=== PATIENT | female | born 1970 | race Caucasian/White ===

== ENCOUNTER 2018-06-07 21:59 | Emergency (ER) | payer MEDICAID, OTHER ==
[2018-06-07] MEDS ORDERED: Sodium Chloride 0.9% 1,000 ML IV STA (22:26)
--- NOTE | 2018-06-07 22:31 | ED PDOC ---
Arrival/HPI - General Chief Complaint: Abdominal Pain Time Seen by Provider: 06/07/18 22:25 Historian: Patient - History of Present Illness Narrative History of Present Illness (Text): 06/07/18 22:27 47yo female with no pmhx present with complaint of intermittent lower abdominal crampy pain since this morning. Notes that pain is localized inferior to her umbilicus. States her last BM was yesterday and normal. Denies nausea, vomiting , diarrhea, constipation, fever, chills, chest pain, SOB, urinary symptoms, melena, hematemesis, any other complaint. Past Medical History - Provider Review Nursing Documentation Reviewed: Yes - Infectious Disease Hx of Infectious Diseases: None - Reproductive Menopause: Yes - Cardiac Hx Cardiac Disorders: No - Psychiatric Hx Substance Use: No - Anesthesia Hx Anesthesia: No Family/Social History - Physician Review Nursing Documentation Reviewed: Yes Family/Social History: Unknown Family HX Smoking Status: Never Smoked Hx Alcohol Use: No Hx Substance Use: No Allergies/Home Meds Allergies/Adverse Reactions: Allergies No Known Allergies Allergy (Verified 06/07/18 22:14) Review of Systems - Physician Review All systems were reviewed & negative as marked: Yes - Review of Systems Constitutional: Normal Eyes: Normal ENT: Normal Respiratory: Normal Cardiovascular: Normal Gastrointestinal: Abdominal Pain. absent: Constipation, Diarrhea, Nausea, Vomiting, Hematochezia, Hematemesis Genitourinary Female: Normal Musculoskeletal: Normal Skin: Normal Neurological: Normal Endocrine: Normal Hemo/Lymphatic: Normal Psychiatric: Normal Physical Exam Vital Signs Reviewed: Yes Vital Signs Temp Pulse Resp BP Pulse Ox 06/07/18 22:41 98.4 F 72 16 129/76 100 Temperature: Afebrile Blood Pressure: Normal Pulse: Regular Respiratory Rate: Normal Appearance: Positive for: Well-Appearing, Non-Toxic, Comfortable Pain Distress: None Mental Status: Positive for: Alert and Oriented X 3 - Systems Exam Head: Present: Atraumatic, Normocephalic Pupils: Present: PERRL Extroacular Muscles: Present: EOMI Conjunctiva: Present: Normal Mouth: Present: Moist Mucous Membranes Neck: Present: Normal Range of Motion Respiratory/Chest: Present: Clear to Auscultation, Good Air Exchange. No: Respiratory Distress, Accessory Muscle Use Cardiovascular: Present: Regular Rate and Rhythm, Normal S1, S2. No: Murmurs Abdomen: Present: Tenderness (Inferior to the umbilicus), Other (Soft). No: Distention, Peritoneal Signs, Rebound, Guarding, McBurney's Point Tender, Rovsing's Sign Present Back: Present: Normal Inspection Upper Extremity: Present: Normal Inspection. No: Cyanosis, Edema Lower Extremity: Present: Normal Inspection. No: Edema Neurological: Present: GCS=15, CN II-XII Intact, Speech Normal Skin: Present: Warm, Dry, Normal Color. No: Rashes Psychiatric: Present: Alert, Oriented x 3, Normal Insight, Normal Concentration Medical Decision Making ED Course and Treatment: 06/07/18 22:33 PT presented for intermitted crampy abdominal pain since this morning. Labs, UA ordered IL NS, Pepcid 20mg ordered Abdominal/Pelvis CT ordered Will reassess 06/08/18 01:12 ABDOMEN and PELVIS: Intraperitoneal space: Unremarkable. No free air. No significant fluid collection. Bones/joints: Scoliosis. There is a well-corticated cystic lesion in the right proximal femur most likely benign measuring 2.5 cm. No acute fracture. No dislocation. Soft tissues: There is a fat-containing umbilical hernia. Vasculature: Unremarkable. No abdominal aortic aneurysm. Lymph nodes: Unremarkable. No enlarged lymph nodes. IMPRESSION: Right UPJ stone without hydronephrosis PT's lab was unremarkable. she was comfortable in ED CT result was CORA baker. He recommends KUB and Dc with pain medication. States pt should see him in the office on Sunday. Result was DW the pt. She was stringy advised to f/u with Dr. baker on Sunday. Advised to return to ED for worsening pain. Percocet, ibuprofen and cipro will given - Lab Interpretations Lab Results: 06/07/18 22:34 06/07/18 22:34 Lab Results 06/07/18 22:34: Sodium 141, Potassium 3.7, Chloride 104, Carbon Dioxide 27, Anion Gap 14, BUN 14, Creatinine 0.6 L, Est GFR ( Amer) > 60, Est GFR ( Non-Af Amer) > 60, Random Glucose 94, Calcium 9.4, Total Bilirubin 0.6, AST 23, ALT 36, Alkaline Phosphatase 98, Lactate Dehydrogenase 430, Total Creatine Kinase 79, Troponin I < 0.01, Total Protein 7.8, Albumin 4.4, Globulin 3.3, Albumin/Globulin Ratio 1.3, Amylase 66, Lipase 33 06/07/18 22:34: PT 12.9 H, INR 1.13, APTT 27.9 06/07/18 22:34: WBC 7.1, RBC 4.14, Hgb 12.4, Hct 36.0, MCV 87.0, MCH 30.0, MCHC 34.4, RDW 12.9, Plt Count 248, MPV 11.3 H, Gran % 59.2, Lymph % (Auto) 32.4, [place] % (Auto) 7.5 H, Eos % (Auto) 0.6 L, Baso % (Auto) 0.3, Gran # 4.21, Lymph # (Auto) 2.3, [place] # (Auto) 0.5, Eos # (Auto) 0.0, Baso # (Auto) 0.02 - RAD Interpretation Radiology Orders: 06/07/18 22:26 ABD & PELVIS IV CONTRAST ONLY [CT] Stat 06/08/18 00:42 ABDOMEN MULTIPLE VIEW (w/OBL) [RAD] Stat - Medication Orders Current Medication Orders: Discontinued Medications Famotidine (Pepcid) 20 mg IVP STAT STA Stop: 06/07/18 22:26 Last Admin: 06/07/18 22:40 Dose: 20 mg IVP Administration Document 06/07/18 22:40 IT (Rec: 06/07/18 22:40 IT [id number]) Charges for Administration # of IVP Administrations 1 Sodium Chloride (Sodium Chloride 0.9%) 1,000 mls @ 999 mls/hr IV .Q1H1M STA Stop: 06/07/18 23:26 Last Admin: 06/07/18 22:40 Dose: 999 mls/hr eMAR Start Stop Document 06/07/18 22:40 IT (Rec: 06/07/18 22:40 IT [id number]) Intravenous Solution Start Date 06/07/18 Start Time 22:40 Ketorolac Tromethamine (Toradol) 30 mg IVP STAT STA Stop: 06/08/18 00:36 Last Admin: 06/08/18 01:18 Dose: 30 mg MAR Pain Assessment Document 06/08/18 01:18 IT (Rec: 06/08/18 01:18 IT [id number]) Pain Reassessment Is this a pain reassessment? No Sleep Is patient sleeping during reassessment? No Presence of Pain Presence of Pain Yes Pain Scale Used Pain Scale Used Numeric IVP Administration Document 06/08/18 01:18 IT (Rec: 06/08/18 01:18 IT [id number]) Charges for Administration # of IVP Administrations 1 Tamsulosin HCl (Flomax) 0.4 mg PO STAT STA Stop: 06/08/18 01:21 Disposition/Present on Arrival - Present on Arrival Any Indicators Present on Arrival: No History of DVT/PE: No History of Uncontrolled Diabetes: No Urinary Catheter: No History of Decub. Ulcer: No History Surgical Site Infection Following: None - Disposition Have Diagnosis and Disposition been Completed?: Yes Diagnosis: Ureteral stone Disposition Time: :30 Patient Plan: Discharge Patient Problems: Current Active Problems Problem Status Onset Ureteral stone Acute Condition: STABLE Discharge Instructions (ExitCare): Renal Colic Additional Instructions: Follow up with Urologist, Dr. Baker on Sunday Drink plenty of fluid and take your medication Return to ED for any new or worsening symptoms Prescriptions: Ciprofloxacin HCl [Cipro] 500 mg PO BID #14 tablet Ibuprofen [Motrin Tab] 600 mg PO Q6 #20 tab oxyCODONE/Acetaminophen [Percocet 5/325 mg Tab] 1 ea PO Q6 #9 tab Tamsulosin [Flomax] 0.4 mg PO DAILY #3 cap Referrals: Lucia Baker MD [Staff Provider] - Follow up with primary Forms: [employer] (Burmese)
[2018-06-07 22:43] VITALS: RESP 16; O2SAT 100
[2018-06-07 22:43] LABS: BASO # 0.02 K/mm3 (0.0-2.0); BASO % 0.3 % (0.0-3.0); EOS % 0.6 % (1.5-5.0); GRAN # 4.21 (1.4-6.5); GRAN % 59.2 % (50.0-68.0); HEMOGLOBIN 12.4 g/dL (12.0-16.0); LYMPH # 2.3 (1.2-3.4); LYMPH % 32.4 % (22.0-35.0); MEAN CORPUSCULAR HGB CONC 34.4 g/dl (31.0-37.0); MEAN PLATELET VOLUME 11.3 fl (7.0-11.0); MONO # 0.5 (0.1-0.6); MONO % 7.5 % (1.0-6.0); RBC 4.14 10^6/uL (3.5-6.1); RED CELL DISTRIBUTION WIDTH 12.9 % (11.5-14.5); WHITE BLOOD COUNT 7.1 10^3/ul (4.5-11.0)
[2018-06-07 22:51] LABS: INR 1.13; PARTIAL THROMBOPLASTIN TIME 27.9 Seconds (25.1-36.5); PROTHROMBIN TIME 12.9 SECONDS (9.4-12.5)
[2018-06-07 22:53] LABS: ALB/GLOB RATIO 1.3 (1.1-1.8); ALBUMIN 4.4 g/dL (3.0-4.8); ALT/SGPT 36 U/L (7-56); AMYLASE 66 U/L (35-125); AST/SGOT 23 U/L (14-36); BLOOD UREA NITROGEN 14 mg/dL (7-21); CALCIUM 9.4 mg/dL (8.4-10.5); GFR AFRICAN-AMERICAN > 60; GFR NON-AFRICAN AMERICAN > 60; LIPASE 33 U/L (23-300)
[2018-06-07 23:04] LABS: TROPONIN I < 0.01 ng/mL
[2018-06-07] MEDS ORDERED: Iohexol 350 MG/100 ML VIAL ONE (23:35)
[2018-06-08 01:19] LABS: PH,URINE 6.5 (4.7-8.0); URINE BILIRUBIN NEGATIVE (NEGATIVE); URINE BLOOD LARGE (NEGATIVE); URINE GLUCOSE (UA) NEGATIVE (NEGATIVE); URINE LEUKOCYTE ESTERASE NEGATIVE Leu/uL (NEGATIVE); URINE PROTEIN NEGATIVE mg/dL (<30 mg/dL); URINE UROBILINOGEN 0.2 E.U./dL (<1 E.U./dL)
[2018-06-08 01:37] LABS: URINE APPEARANCE SL CLOUDY (CLEAR); URINE COLOR YELLOW (YELLOW)
[2018-06-08 01:39] LABS: URINE BACTERIA RARE (NEG); URINE WBC 0 - 2 /hpf (0-6)
[2018-06-08 01:47] VITALS: BP 133/74; PULSE 64; TEMP 98
--- NOTE | 2018-06-08 08:53 | CARD ---
APPROVED REPORT Date of service: 06/08/2018 EKG Measurement Heart [id number] <Conclusion> Normal sinus rhythm Normal ECG
--- NOTE | 2018-06-08 11:24 | CT ---
Date of service: 06/07/2018 PROCEDURE: CT abdomen pelvis dated 06/07/2018 HISTORY: Abdominal pain COMPARISON: No prior study available comparison TECHNIQUE: Contiguous axial images of the abdomen and pelvis performed following intravenous injection of approximately 100 cc Omnipaque 300 contrast material. . Coronal and Sagittal reformats generated. Radiation dose: Total exam DLP = 748.29 mGy-cm. This CT exam was performed using one or more of the following dose reduction techniques: Automated exposure control, adjustment of the mA and/or kV according to patient size, and/or use of iterative reconstruction technique. FINDINGS: LOWER THORAX: Mild passive/ dependent type atelectasis both posterior sulci left greater than right. There is a tiny hiatal hernia. LIVER: Eleven Liver exhibits normal size measuring approximately 16 cm in CC dimension. Liver demonstrates mild diffuse homogeneous low-attenuation suggesting fatty infiltration. No obvious hepatic mass or collection. Portal and splenic veins are opacified. GALLBLADDER AND BILE DUCTS: Gallbladder is physiologically distended. No evidence of intraluminal gallbladder calculi. PANCREAS: Pancreas appears slightly atrophic and fatty replaced. No pancreatic masses or collections. The SPLEEN: No splenomegaly. Questionable small splenic artery aneurysm. ADRENALS: Unremarkable. KIDNEYS AND URETERS: Kidneys demonstrate relatively symmetric size and symmetric nephrograms. There is a small approximately 5.9 mm fluid seen in right UPJ small approximately 5.2 mm rounded low-attenuation focus seen anteromedial cortex upper pole right kidney that exhibits Hounsfield units in the mid 40s. This could represent a hyperdense cyst. Followup renal ultrasound could confirm and exclude any solid component. Massimo BLADDER: Urinary bladder incompletely distended which in part accounts for thick-walled appearance; however correlation with urinalysis recommended to exclude UTI/cystitis. REPRODUCTIVE: Unremarkable. APPENDIX: Normal appendix. BOWEL: Evaluation of the bowel is limited due to incomplete opacification. Stomach is incompletely distended which in part accounts for thick-walled appearance. Visualized loops of small bowel exhibit normal contour and caliber. No evidence of acute mechanical small bowel obstruction. PERITONEUM: No fluid collection. No free air. There is a small fat containing umbilical hernia with the slight mild diastases of the subjacent abdominus rectus musculature LYMPH NODES: Unremarkable. No enlarged lymph nodes. VASCULATURE: No aortic aneurysm. BONES: Multilevel degenerative spondylosis of the lower thoracic and lumbar spine. There is a mild dextroscoliosis centered in the lower thoracic region with moderate levoscoliosis mid lumbar region. 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 IMPRESSION: 5.9 mm calculus right UPJ region. Small low-attenuation lesion right kidney possibly representing hyperdense cyst. Consider follow-up ultrasound to confirm and exclude solid lesion. Slight urinary bladder wall thickening likely due to incomplete distention however correlation with urinalysis to exclude cystitis. Mild fatty hepatic infiltration. Scoliotic deformity of the thoracic and lumbar spine as above. 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
--- NOTE | 2018-06-08 13:00 | RAD ---
Date of service: 06/08/2018 HISTORY: UPJ COMPARISON: Correlation made with concurrent CT scan abdomen and pelvis FINDINGS: BOWEL: Normal. No obstruction. No free air. BONES: Normal. OTHER FINDINGS: There is filling defects seen in the right UPJ region consistent with of previously noted 5.9 mm calculus in this location no evidence of hydronephrosis IMPRESSION: 5.9 mm calculus within the right UPJ region. No hydronephrosis
== END 2018-06-08 01:47 | disposition home or self-care (01) ==
LOC: ED 21:59
DX: N20.1 Calculus of ureter (principal)
CPT/HCPCS: 74022; 74177; 80053; 81001; 82150; 82550; 83615; 83690; 84484; 85025; 85610; 85730; 87086; 93005; 96374; 99283; J1885; J7030; Q9967

== ENCOUNTER 2018-06-09 22:36 | Observation (INO) | payer MEDICAID, OTHER ==
--- NOTE | 2018-06-09 23:10 | ED PDOC ---
Arrival/HPI - General Chief Complaint: Back Pain Time Seen by Provider: 06/09/18 22:43 Historian: Patient, Family (Daughter) - History of Present Illness Narrative History of Present Illness (Text): 06/09/18 23:10 Selena Fuentes is a 47 year old female who presents to the Emergency department accompanied by daughter complaining of right flank pain. Patient was recently in the Emergency department for lower abdominal pain and had a CT Abdomen and Pelvis and XR Abdomen performed, which showed a 5.9 mm calculus right UPJ region. Patient was discharged home and advised to follow-up with urologist, Dr. Baker, on 06/10/2018 but states tonight she developed worsening right- sided abdominal pain radiating to her right flank. Patient took 1 Percocet at 21 :30, but denies any significant relief. Patient denies any fever, chills, chest pain, shortness of breath, nausea, vomiting, diarrhea, neck pain, headache, dizziness, or any other complaints. Symptom Onset: Gradual Symptom Course: Unchanged, Worsening Activities at Onset: Light Context: Home Past Medical History - Provider Review Nursing Documentation Reviewed: Yes - Infectious Disease Hx of Infectious Diseases: None - Cardiac Hx Cardiac Disorders: No - Psychiatric Hx Substance Use: No - Anesthesia Hx Anesthesia: No Family/Social History - Physician Review Nursing Documentation Reviewed: Yes Family/Social History: Unknown Family HX Smoking Status: Never Smoked Hx Alcohol Use: No Hx Substance Use: No Allergies/Home Meds Allergies/Adverse Reactions: Allergies No Known Allergies Allergy (Verified 06/09/18 22:54) Review of Systems - Physician Review All systems were reviewed & negative as marked: Yes - Review of Systems Constitutional: Normal. absent: Fevers Eyes: Normal ENT: Normal Respiratory: Normal. absent: SOB, Cough Cardiovascular: Normal. absent: Chest Pain Gastrointestinal: Abdominal Pain. absent: Diarrhea, Vomiting Musculoskeletal: Back Pain. absent: Neck Pain Skin: Normal. absent: Rash Neurological: Normal. absent: Headache, Dizziness Endocrine: Normal Hemo/Lymphatic: Normal Psychiatric: Normal Physical Exam Vital Signs Reviewed: Yes Vital Signs Temp Pulse Resp BP Pulse Ox 06/10/18 02:24 98.1 F 78 17 124/72 99 06/10/18 01:10 97.9 F 82 18 121/73 99 06/09/18 22:49 98.0 F 78 18 116/79 98 Temperature: Afebrile Blood Pressure: Normal Pulse: Regular Respiratory Rate: Normal Appearance: Positive for: Well-Appearing, Non-Toxic, Comfortable Pain Distress: None Mental Status: Positive for: Alert and Oriented X 3 - Systems Exam Head: Present: Atraumatic, Normocephalic Pupils: Present: PERRL Extroacular Muscles: Present: EOMI Conjunctiva: Present: Normal Mouth: Present: Moist Mucous Membranes Neck: Present: Normal Range of Motion. No: Meningeal Signs, MIDLINE TENDERNESS , Paraspinal Tenderness Respiratory/Chest: Present: Clear to Auscultation, Good Air Exchange. No: Respiratory Distress, Accessory Muscle Use Cardiovascular: Present: Regular Rate and Rhythm, Normal S1, S2. No: Murmurs Abdomen: No: Tenderness, Distention, Peritoneal Signs Back: Present: CVA Tenderness (Right flank tenderness). No: Midline Tenderness , Paraspinal Tenderness Upper Extremity: Present: Normal Inspection. No: Cyanosis, Edema Lower Extremity: Present: Normal Inspection. No: Edema Neurological: Present: GCS=15, CN II-XII Intact, Speech Normal Skin: Present: Warm, Dry, Normal Color. No: Rashes Psychiatric: Present: Alert, Oriented x 3, Normal Insight, Normal Concentration Medical Decision Making ED Course and Treatment: 06/09/18 23:10 Impression: 47 year old female complaining of right-sided abdominal pain radiating to right flank. Differential Diagnosis included but are not limited to: renal colic vs. nephrolithiasis Plan: -- CT Abdomen and Pelvis w/o contrast -- Labs -- Urinalysis -- IV fluids -- Morphine -- Toradol -- Zofran -- Reassess and disposition Prior Visits: Notes and results from previous visits were reviewed. On 06/07/2018, pt was seen in the Emergency department for lower abdominal pain. CT Abdomen and Pelvis performed showed: 5.9 mm calculus right UPJ region. Small low-attenuation lesion right kidney possibly representing hyperdense cyst. Pt was d/c home on Percocet, Motrin, Flomax, and Cipro. Progress Notes: 06/10/18 00:30 CT Abdomen and Pelvis reviewed, shows: Lower thorax: Mild dependent atelectatic changes in the lungs. ABDOMEN: Liver: Normal. No mass. Gallbladder and bile ducts: Normal. No calcified stones. No ductal dilation. Pancreas: Normal. No ductal dilation. Spleen: Normal. No splenomegaly. Adrenals: Normal. No mass. Kidneys and ureters: Moderate right-sided hydronephrosis and hydroureter secondary to a 6 mm stone in the mid right ureter. Stomach and bowel: Normal. No obstruction. No mucosal thickening. Appendix: Normal appendix. PELVIS: Bladder: Unremarkable as visualized. Reproductive: Unremarkable as visualized. ABDOMEN and PELVIS: Intraperitoneal space: Normal. No free air. No significant fluid collection. Bones/joints: Dextroscoliosis of the thoracic spine. Soft tissues: Unremarkable. Vasculature: Normal. No abdominal aortic aneurysm. Lymph nodes: Normal. No enlarged lymph nodes. IMPRESSION: Moderate right-sided hydronephrosis and hydroureter secondary to a 6 mm stone in the mid right ureter. 06/10/18 01:16 Case discussed with center medical and lab director master sonar technician, who is aware and agrees with plan. 06/10/18 01:[address] [place] Paulino, who is aware and agrees with plan. Accepts pt in to hospitalist service. [facility] observation for renal colic and intractable pain. 06/10/18 01:20 Case had been discussed earlier with the urologist .Plan was to discharge patient for follow up if pain free.However,patient remains symptomatic necessitating further in patient analgesia and possible intervention. - Lab Interpretations Lab Results: 06/09/18 23:26 06/09/18 23:26 Lab Results 06/09/18 23:26: WBC 8.7 D, RBC 4.05, Hgb 12.1, Hct 35.1 L, MCV 86.7, MCH 29.9, MCHC 34.5, RDW 12.8, Plt Count 260, MPV 11.8 H 06/09/18 23:26: Sodium 143, Potassium 3.6, Chloride 106, Carbon Dioxide 25, Anion Gap 16, BUN 15, Creatinine 0.7, Est GFR ( Amer) > 60, Est GFR (Non- Af Amer) > 60, Random Glucose 113 H, Calcium 9.3, Total Bilirubin 0.4, AST 24, ALT 21, Alkaline Phosphatase 88, Total Protein 7.6, Albumin 4.4, Globulin 3.2, Albumin/Globulin Ratio 1.3 I have reviewed the lab results: Yes - RAD Interpretation Radiology Orders: 06/09/18 23:22 ABD & PELVIS W/O PO OR IV CONT [CT] Stat [employer] Bonding Machine Operator: Radiologist - Medication Orders Current Medication Orders: Discontinued Medications Sodium Chloride (Sodium Chloride 0.9%) 1,000 mls @ 999 mls/hr IV .Q1H1M STA Stop: 06/10/18 00:21 Last Admin: 06/09/18 23:37 Dose: 999 mls/hr eMAR Start Stop Document 06/09/18 23:37 IT (Rec: 06/09/18 23:37 IT [id number]) Intravenous Solution Start Date 06/09/18 Start Time 23:37 Ketorolac Tromethamine (Toradol) 30 mg IVP ONCE ONE Stop: 06/09/18 23:22 Last Admin: 06/09/18 23:36 Dose: 30 mg MAR Pain Assessment Document 06/09/18 23:36 IT (Rec: 06/09/18 23:37 IT [id number]) Pain Reassessment Is this a pain reassessment? No Sleep Is patient sleeping during reassessment? No Presence of Pain Presence of Pain Yes Pain Scale Used Pain Scale Used Numeric Location Left, Right or Bilateral Right IVP Administration Document 06/09/18 23:36 IT (Rec: 06/09/18 23:37 IT [id number]) Charges for Administration # of IVP Administrations 1 Morphine Sulfate (Morphine) 4 mg IVP STAT STA Stop: 06/09/18 23:22 Last Admin: 06/09/18 23:37 Dose: 4 mg MAR Pain Assessment Document 06/09/18 23:37 IT (Rec: 06/09/18 23:37 IT [id number]) Pain Reassessment Is this a pain reassessment? No Sleep Is patient sleeping during reassessment? No Presence of Pain Presence of Pain Yes IVP Administration Document 06/09/18 23:37 IT (Rec: 06/09/18 23:37 IT [id number]) Charges for Administration # of IVP Administrations 1 Morphine Sulfate (Morphine) 4 mg IVP STAT STA Stop: 06/10/18 01:16 Last Admin: 06/10/18 01:46 Dose: 4 mg MAR Pain Assessment Document 06/10/18 01:46 IT (Rec: 06/10/18 01:46 IT [id number]) Pain Reassessment Is this a pain reassessment? Yes Sleep Is patient sleeping during reassessment? No Presence of Pain Presence of Pain Yes Pain Scale Used Pain Scale Used Numeric Location Left, Right or Bilateral Right IVP Administration Document 06/10/18 01:46 IT (Rec: 06/10/18 01:46 IT [id number]) Charges for Administration # of IVP Administrations 1 Ondansetron HCl (Zofran Inj) 4 mg IVP ONCE ONE Stop: 06/09/18 23:22 Last Admin: 06/09/18 23:37 Dose: 4 mg IVP Administration Document 06/09/18 23:37 IT (Rec: 06/09/18 23:37 IT [id number]) Charges for Administration # of IVP Administrations 1 - Scribe Statement The provider has reviewed the documentation as recorded by the Sweta Strong Provider Scribe Attestation: All medical record entries made by the Scribe were at my direction and personally dictated by me. I have reviewed the chart and agree that the record accurately reflects my personal performance of the history, physical exam, medical decision making, and the department course for this patient. I have also personally directed, reviewed, and agree with the discharge instructions and disposition. Disposition/Present on Arrival - Present on Arrival Any Indicators Present on Arrival: No History of DVT/PE: No History of Uncontrolled Diabetes: No Urinary Catheter: No History of Decub. Ulcer: No History Surgical Site Infection Following: None - Disposition Have Diagnosis and Disposition been Completed?: Yes Diagnosis: Renal colic, Intractable pain Disposition: HOSPITALIZED Disposition Time: : Patient Plan: Observation Patient Problems: Current Active Problems Problem Status Onset Intractable pain Acute Renal colic Acute Condition: STABLE
[2018-06-09] MEDS ORDERED: Sodium Chloride 0.9% 1,000 ML IV STA (23:21)
[2018-06-09] MEDS ORDERED: Morphine 4 mg/ml ISec IVP STA (23:21)
[2018-06-09 23:52] LABS: HEMOGLOBIN 12.1 g/dL (12.0-16.0); MEAN CELL VOLUME 86.7 fl (80.0-105.0); MEAN CORPUSCULAR HEMOGLOBIN 29.9 pg (25.0-35.0); MEAN CORPUSCULAR HGB CONC 34.5 g/dl (31.0-37.0); MEAN PLATELET VOLUME 11.8 fl (7.0-11.0); RBC 4.05 10^6/uL (3.5-6.1); RED CELL DISTRIBUTION WIDTH 12.8 % (11.5-14.5); WHITE BLOOD COUNT 8.7 10^3/ul (4.5-11.0)
[2018-06-10 00:13] LABS: ALB/GLOB RATIO 1.3 (1.1-1.8); ALBUMIN 4.4 g/dL (3.0-4.8); ALT/SGPT 21 U/L (7-56); AST/SGOT 24 U/L (14-36); BLOOD UREA NITROGEN 15 mg/dL (7-21); CALCIUM 9.3 mg/dL (8.4-10.5); GFR NON-AFRICAN AMERICAN > 60
[2018-06-10] MEDS ORDERED: Morphine 4 mg/ml ISec IVP STA (01:15)
[2018-06-10 02:47] VITALS: BMI 28.3
[2018-06-10] MEDS ORDERED: Morphine 2 mg/ml ISec IVP PRN (02:47)
--- NOTE | 2018-06-10 02:51 | CP.PCM.HP ---
<Mohinder Longoria - Last Filed: 06/10/18 03:44> History of Present Illness - History of Present Illness History of Present Illness: Mohinder Longoria, PGY-1 History and Physical for Hospitalist Service CC: R flank pain HPI: Ms. Fuentes is a 47 year old Female originally from [place] with no past medical history who presented with R flank pain radiating to the back, present even at rest. Patient was recently in the [place] ED on 06/07 for lower abdominal pain. A CT Abdomen and Pelvis on 06/07 showed a 5.9 mm calculus in the right UPJ region. Patient was discharged home on Percocet, Tamsolusin, ciprofloxacin and Motrin and made an appointment to follow-up with urologist, Dr. Baker, on 06/10/2018. However, patient states tonight she developed worsening right-sided abdominal pain radiating to her right flank in the evening , and patient returned to ED. Patient vomited food once before arriving and then once upon arriving at the ED. No blood reported. Patient reports hesitancy and dribbling of urine over the past week despite the urge to void and consistent water consumption. No blood reported in urine and bowel movements have remained normal in size and shape. Patient reports a diet high in protein, including meat, fish and chicken. Patient took 1 Percocet at 9:30pm, but denies any significant relief. Patient did not take any of the Ciprofloxacin prescribed , but has taken the Tamsolusin as prescribed. Patient denies any fever, chills , chest pain, shortness of breath, nausea, vomiting, diarrhea, neck pain, headache, dizziness, or any other complaints. PMHx: none PSHx: None All: NKDA. Seasonal spring allergies Social: denies tobacco, IVDU and ETOH. 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 Fam Hx: Mom has HTN, DM and ESRD on HD Meds: None PMD: Dr. Blackman Uro: Dr. Baker Present on Admission - Present on Admission Any Indicators Present on Admission: No Review of Systems - Review of Systems All systems: reviewed and no additional remarkable complaints except (as described in HPI.) Review of Systems: 12 point ROS was completed and negative except as described in HPI. Past Patient History - Infectious Disease Hx of Infectious Diseases: None - Past Social History Smoking Status: Never Smoked - CARDIAC Hx Cardiac Disorders: No - PULMONARY Hx Respiratory Disorders: No - NEUROLOGICAL Hx Neurological Disorder: No - HEENT Hx HEENT Problems: No - RENAL Hx Chronic Kidney Disease: No - ENDOCRINE/METABOLIC Hx Endocrine Disorders: No - HEMATOLOGICAL/ONCOLOGICAL Hx Blood Disorders: No - INTEGUMENTARY Hx Dermatological Problems: No - MUSCULOSKELETAL/RHEUMATOLOGICAL Hx Falls: No - GASTROINTESTINAL Hx Gastrointestinal Disorders: No - GENITOURINARY/GYNECOLOGICAL Hx Genitourinary Disorders: No - PSYCHIATRIC Hx Substance Use: No - SURGICAL HISTORY Hx Surgeries: No - ANESTHESIA Hx Anesthesia: No Meds Allergies/Adverse Reactions: Allergies Allergy/AdvReac Type Severity Reaction Status Date / Time No Known Allergies Allergy Verified 06/09/18 22:54 Physical Exam - Constitutional Appears: Well, Non-toxic, No Acute Distress - Head Exam Head Exam: ATRAUMATIC, NORMAL INSPECTION, NORMOCEPHALIC - Eye Exam Eye Exam: EOMI, Normal appearance Pupil Exam: NORMAL ACCOMODATION, PERRL - ENT Exam ENT Exam: Mucous Membranes Moist, Normal Exam - Neck Exam Neck exam: Positive for: Normal Inspection. Negative for: Lymphadenopathy - Respiratory Exam Respiratory Exam: Clear to Auscultation Bilateral, NORMAL BREATHING PATTERN. absent: Rales, Rhonchi, Wheezes - Cardiovascular Exam Cardiovascular Exam: RRR, +S1, +S2 - GI/Abdominal Exam GI & Abdominal Exam: Normal Bowel Sounds, Soft. absent: Bruit, Distended, Guarding, Organomegaly, Rebound, Rigid, Tenderness - Back Exam Back exam: FULL ROM, NORMAL INSPECTION, tenderness. absent: CVA tenderness (L) , CVA tenderness (R), muscle spasm, paraspinal tenderness Additional comments: Mild and localized along R flank. - Neurological Exam Neurological exam: Alert, Oriented x3 - Psychiatric Exam Psychiatric exam: Normal Affect, Normal Mood - Skin Skin Exam: Dry, Intact, Normal Color, Warm Results - Vital Signs Recent Vital Signs: Last Vital Signs Temp 97.9 F 06/10/18 02:38 Pulse 75 06/10/18 02:38 Resp 18 06/10/18 02:38 BP 123/74 06/10/18 02:38 Pulse Ox 99 06/10/18 02:24 - Labs Result Diagrams: 06/09/18 23:26 06/09/18 23:26 Assessment & Plan - Assessment and Plan (Free Text) Assessment: Assessment: Ms. Fuentes is a 47 year old Female originally from [place] with no past medical history who presented with R flank pain radiating to the back. Patient is being evaluated for painful R renal colic. Plan: Hydronephrosis and nephrolithiasis 2/2 6 mm stone: In ED, received Morphine, Zofran, Toradol. No leukocytosis CT Abdomen and Pelvis 06/10 shows: Moderate right-sided hydronephrosis and hydroureter secondary to a 6 mm stone in the mid right ureter. On 06/07, CT showed 5.9 mm calculus at R UPJ. UA: Trace ketones and large amounts of blood NPO, NS @ 125 cc/hr No antibiotics warranted at this time due to patient presentation, history, and lack of leukocytosis Urology consult with Dr. Baker - recommendations appreciated regarding management (lithotripsy vs stent vs medical management) Morphine 2q4 PRN for pain control Order placed to strain urine for calculus to assess etiology of stone Continue Tamsolusin 0.4 for possible void on its own f/u AM labs and pain control GI/DVT PPx: SCD's Protonix 40 IVP Patient seen, case reviewed, and plan discussed with Dr. Paulino. Mohinder Longoria, PGY-1 <Davi Paulino - Last Filed: 06/10/18 05:43> Results - Vital Signs Recent Vital Signs: Last Vital Signs Temp 97.9 F 06/10/18 02:38 Pulse 75 06/10/18 02:38 Resp 18 06/10/18 02:38 BP 123/74 06/10/18 02:38 Pulse Ox 97 06/10/18 02:30 - Labs Result Diagrams: 06/09/18 23:26 06/09/18 23:26
[2018-06-10] MEDS: Sodium Chloride 0.9% 1,000 ML IV SCH ×2 (03:02→23:30)
[2018-06-10 07:20] LABS: BASO # 0.02 K/mm3 (0.0-2.0); BASO % 0.2 % (0.0-3.0); EOS % 0.4 % (1.5-5.0); GRAN # 5.38 (1.4-6.5); GRAN % 64.3 % (50.0-68.0); HEMOGLOBIN 10.7 g/dL (12.0-16.0); LYMPH # 2.4 (1.2-3.4); LYMPH % 29.1 % (22.0-35.0); MEAN CELL VOLUME 88.3 fl (80.0-105.0); MEAN CORPUSCULAR HEMOGLOBIN 29.2 pg (25.0-35.0); MEAN CORPUSCULAR HGB CONC 33.1 g/dl (31.0-37.0); MEAN PLATELET VOLUME 11.5 fl (7.0-11.0); MONO # 0.5 (0.1-0.6); RBC 3.66 10^6/uL (3.5-6.1); RED CELL DISTRIBUTION WIDTH 13.1 % (11.5-14.5); WHITE BLOOD COUNT 8.4 10^3/ul (4.5-11.0)
[2018-06-10 07:22] LABS: URINE BILIRUBIN SMALL (NEGATIVE); URINE BLOOD LARGE (NEGATIVE); URINE GLUCOSE (UA) NEGATIVE (NEGATIVE); URINE LEUKOCYTE ESTERASE TRACE Leu/uL (NEGATIVE); URINE PROTEIN 30 mg/dL (<30 mg/dL); URINE UROBILINOGEN 0.2 E.U./dL (<1 E.U./dL)
[2018-06-10 07:29] LABS: URINE COLOR DARK YELLOW (YELLOW)
[2018-06-10 07:30] LABS: URINE APPEARANCE SL CLOUDY (CLEAR)
[2018-06-10 07:31] LABS: ALB/GLOB RATIO 1.3 (1.1-1.8); ALBUMIN 3.6 g/dL (3.0-4.8); ALT/SGPT 25 U/L (7-56); AST/SGOT 20 U/L (14-36); BLOOD UREA NITROGEN 14 mg/dL (7-21); CALCIUM 8.7 mg/dL (8.4-10.5); GFR NON-AFRICAN AMERICAN > 60
[2018-06-10 07:53] LABS: URINE AMORPHOUS SEDIMENT SMALL; URINE BACTERIA LARGE (NEG); URINE RBC 25 - 30 /hpf (0-2)
--- NOTE | 2018-06-10 08:50 | CT ---
Date of service: 06/09/2018 PROCEDURE: CT Abdomen and Pelvis without intravenous contrast HISTORY: pain right flank and lower abdominal pain. COMPARISON: 06/07/2018. CT abdomen and pelvis. Summary of findings on the comparison examination: 6 mm calculus right UPJ junction TECHNIQUE: Unenhanced study. Neither oral nor intravenous contrast administered. Radiation dose: Total exam DLP = 795.94 mGy-cm. This CT exam was performed using one or more of the following dose reduction techniques: Automated exposure control, adjustment of the mA and/or kV according to patient size, and/or use of iterative reconstruction technique. FINDINGS: LOWER THORAX: Unremarkable. LIVER: Unremarkable. No gross lesion or ductal dilatation. GALLBLADDER AND BILE DUCTS: Unremarkable. PANCREAS: Unremarkable. No gross lesion or ductal dilatation. SPLEEN: Unremarkable. ADRENALS: Unremarkable. No mass. KIDNEYS AND URETERS: Migration of previously identified calculus which now resides in the mid right ureter. Hydronephrosis and proximal hydroureter identified. Left kidney in ureter: Unremarkable. No hydronephrosis. No solid mass. VASCULATURE: Unremarkable. No aortic aneurysm. BOWEL: Unremarkable. No obstruction. No gross mural thickening. APPENDIX: Unremarkable. Normal appendix. PERITONEUM: Unremarkable. No free fluid. No free air. LYMPH NODES: Unremarkable. No enlarged lymph nodes. BLADDER: Unremarkable. REPRODUCTIVE: Unremarkable. BONES: No acute fracture. Scoliosis, secondary degenerative change at multiple levels. OTHER FINDINGS: None. IMPRESSION: Migration of previously identified right UPJ calculus to the right mid ureter. The calculus measures 6 x 5.2 mm. Concordant results (preliminary interpretation) provided by [facility]. Procedure Completed: 23:49. Preliminary ([facility]) Report: Dictated and Authenticated: 00:26. Final Interpretation: 08:48. June 10, 2018.
--- NOTE | 2018-06-10 08:53 | CP.PCM.PN ---
Subjective - Date & Time of Evaluation Date of Evaluation: 06/10/18 Time of Evaluation: 08:53 Objective - Vital Signs/Intake and Output Vital Signs (last 24 hours): Temp Pulse Resp BP Pulse Ox 97.1 F L 59 L 20 109/61 100 06/10/18 07:55 06/10/18 07:55 06/10/18 07:55 06/10/18 07:55 06/10/18 07:55 Intake and Output: 06/10/18 06/10/18 06:59 18:59 Intake Total 625 Balance 625 - Medications Medications: Current Medications Sodium Chloride (Sodium Chloride 0.9%) 1,000 mls @ 125 mls/hr IV .Q8H [facility] Last Admin: 06/10/18 03:02 Dose: 125 mls/hr Ceftriaxone Sodium (Rocephin 1 Gram Ivpb) 1 gm in 100 mls @ 100 mls/hr IVPB DAILY [facility] PRN Reason: Protocol Ibuprofen (Motrin Tab) 600 mg PO Q6 [facility] Last Admin: 06/10/18 05:23 Dose: Not Given Morphine Sulfate (Morphine) 2 mg IVP Q4H PRN PRN Reason: Pain, moderate (4-7) Pantoprazole Sodium (Protonix Inj) 40 mg IVP DAILY [facility] Tamsulosin HCl (Flomax) 0.4 mg PO DAILY [facility] - Labs Labs: 06/10/18 06:30 06/10/18 06:30
[2018-06-10] MEDS: cefTRIAXone 1 gm 1 GM/100 ML BAG IVPB SCH (09:20)
[2018-06-10] MEDS ORDERED: Lidocaine 2% Jelly (Uro-Jet) ONE (16:30)
[2018-06-10] MEDS ORDERED: Iohexol 240 (50 ml) ONE (16:30)
[2018-06-10] MEDS ORDERED: Propofol 10 mg/ml Inj (20 ML) ONE (16:51)
[2018-06-10] MEDS ORDERED: HYDROmorphone 0.5 mg/0.5 ml ISec IVP PRN (17:25)
[2018-06-10] MEDS ORDERED: Lactated Ringer's 1,000 ML IV SCH (17:30)
[2018-06-11 07:31] LABS: BASO # 0.02 K/mm3 (0.0-2.0); BASO % 0.3 % (0.0-3.0); EOS # 0.2 (0.0-0.7); EOS % 3.3 % (1.5-5.0); GRAN # 3.98 (1.4-6.5); GRAN % 60.6 % (50.0-68.0); HEMOGLOBIN 10.7 g/dL (12.0-16.0); LYMPH # 1.9 (1.2-3.4); LYMPH % 28.3 % (22.0-35.0); MEAN CELL VOLUME 88.6 fl (80.0-105.0); MEAN CORPUSCULAR HEMOGLOBIN 29.8 pg (25.0-35.0); MEAN CORPUSCULAR HGB CONC 33.6 g/dl (31.0-37.0); MEAN PLATELET VOLUME 11.7 fl (7.0-11.0); MONO # 0.5 (0.1-0.6); MONO % 7.5 % (1.0-6.0); RBC 3.59 10^6/uL (3.5-6.1); RED CELL DISTRIBUTION WIDTH 13.1 % (11.5-14.5); WHITE BLOOD COUNT 6.6 10^3/ul (4.5-11.0)
[2018-06-11 07:34] LABS: ALB/GLOB RATIO 1.3 (1.1-1.8); ALBUMIN 3.4 g/dL (3.0-4.8); ALT/SGPT 27 U/L (7-56); AST/SGOT 20 U/L (14-36); BLOOD UREA NITROGEN 9 mg/dL (7-21); CALCIUM 8.7 mg/dL (8.4-10.5); GFR NON-AFRICAN AMERICAN > 60
[2018-06-11 08:32] VITALS: BP 111/71; PULSE 77; RESP 20; TEMP 98.2; O2SAT 94
[2018-06-11] MEDS: cefTRIAXone 1 gm 1 GM/100 ML BAG IVPB SCH (09:31)
[2018-06-11] MEDS: Sodium Chloride 0.9% 1,000 ML IV SCH (09:35)
--- NOTE | 2018-06-11 10:37 | RAD ---
Date of service: 06/10/2018 PROCEDURE: Retrograde pyelogram HISTORY: RT retrograde pyelogram, RT nephroureteral stent placement COMPARISON: TECHNIQUE: 13.5 seconds of fluoro time. Cumulative dose 3.32 mGy. 10 images submitted FINDINGS: The study shows a right-sided retrograde pyelogram which is unremarkable. There is placement of a right ureteral stent IMPRESSION: As above
--- NOTE | 2018-06-11 10:48 | RAD ---
Date of service: 06/11/2018 HISTORY: check stent placement COMPARISON: No prior. FINDINGS: BOWEL: Normal. No obstruction. No free air. BONES: Normal. OTHER FINDINGS: Right-sided ureteral stent in satisfactory position. There are no stones seen along side the stent IMPRESSION: No active disease.
--- NOTE | 2018-06-11 12:57 | CP.PCM.DIS ---
<Ryan Dorantes - Last Filed: 06/11/18 16:49> Provider - Provider Date of Admission: 06/10/18 01:15 Attending physician: Jadyn Mojica DO Primary care physician: Cleve Blackman MD Consults: Lucia Baker M.D Time Spent in preparation of Discharge (in minutes): 45 Hospital Course - Lab Results Lab Results: Micro Results 06/10/18 06:57 Urine Urine Culture - Final No Growth (<1,000 CFU/ML) Most Recent Lab Values WBC 6.6 10^3/ul (4.5-11.0) D 06/11/18 06:45 RBC 3.59 10^6/uL (3.5-6.1) 06/11/18 06:45 Hgb 10.7 g/dL (12.0-16.0) L 06/11/18 06:45 Hct 31.8 % (36.0-48.0) L 06/11/18 06:45 MCV 88.6 fl (80.0-105.0) 06/11/18 06:45 MCH 29.8 pg (25.0-35.0) 06/11/18 06:45 MCHC 33.6 g/dl (31.0-37.0) 06/11/18 06:45 RDW 13.1 % (11.5-14.5) 06/11/18 06:45 Plt Count 202 10^3/uL (120.0-450.0) 06/11/18 06:45 MPV 11.7 fl (7.0-11.0) H 06/11/18 06:45 Gran % 60.6 % (50.0-68.0) 06/11/18 06:45 Lymph % (Auto) 28.3 % (22.0-35.0) 06/11/18 06:45 [place] % (Auto) 7.5 % (1.0-6.0) H 06/11/18 06:45 Eos % (Auto) 3.3 % (1.5-5.0) 06/11/18 06:45 Baso % (Auto) 0.3 % (0.0-3.0) 06/11/18 06:45 Gran # 3.98 (1.4-6.5) 06/11/18 06:45 Lymph # (Auto) 1.9 (1.2-3.4) 06/11/18 06:45 [place] # (Auto) 0.5 (0.1-0.6) 06/11/18 06:45 Eos # (Auto) 0.2 (0.0-0.7) 06/11/18 06:45 Baso # (Auto) 0.02 K/mm3 (0.0-2.0) 06/11/18 06:45 Sodium 142 mmol/L (132-148) 06/11/18 06:45 Potassium 3.7 mmol/L (3.6-5.0) 06/11/18 06:45 Chloride 107 mmol/L (98-107) 06/11/18 06:45 Carbon Dioxide 28 mmol/L (21-33) 06/11/18 06:45 Anion Gap 11 (10-20) 06/11/18 06:45 BUN 9 mg/dL (7-21) 06/11/18 06:45 Creatinine 0.7 mg/dl (0.7-1.2) 06/11/18 06:45 Est GFR ( Amer) > 60 06/11/18 06:45 Est GFR (Non-Af Amer) > 60 06/11/18 06:45 Random Glucose 94 mg/dL (70-110) 06/11/18 06:45 Calcium 8.7 mg/dL (8.4-10.5) 06/11/18 06:45 Phosphorus 4.1 mg/dL (2.5-4.5) 06/10/18 06:30 Magnesium 2.0 mg/dL (1.7-2.2) 06/10/18 06:30 Total Bilirubin 0.4 mg/dL (0.2-1.3) 06/11/18 06:45 AST 20 U/L (14-36) 06/11/18 06:45 ALT 27 U/L (7-56) 06/11/18 06:45 Alkaline Phosphatase 69 U/L (38-126) 06/11/18 06:45 Total Protein 6.1 g/dL (5.8-8.3) 06/11/18 06:45 Albumin 3.4 g/dL (3.0-4.8) 06/11/18 06:45 Globulin 2.7 gm/dL 06/11/18 06:45 Albumin/Globulin Ratio 1.3 (1.1-1.8) 06/11/18 06:45 Urine Color Dark yellow (YELLOW) 06/10/18 06:57 Urine Appearance Sl cloudy (CLEAR) 06/10/18 06:57 Urine pH 6.0 (4.7-8.0) 06/10/18 06:57 Ur Specific [place] >= 1.030 (1.005-1.035) 06/10/18 06:57 Urine Protein 30 mg/dL (<30 mg/dL) H 06/10/18 06:57 Urine Glucose (UA) Negative mg/dL (NEGATIVE) 06/10/18 06:57 Urine Ketones 15 mg/dL (NEGATIVE) H 06/10/18 06:57 Urine Blood Large (NEGATIVE) H 06/10/18 06:57 Urine Nitrate Negative (NEGATIVE) 06/10/18 06:57 Urine Bilirubin Small (NEGATIVE) H 06/10/18 06:57 Urine Urobilinogen 0.2 E.U./dL (<1 E.U./dL) 06/10/18 06:57 Ur Leukocyte Esterase Trace Todd/uL (NEGATIVE) H 06/10/18 06:57 Urine RBC 25 - 30 /hpf (0-2) 06/10/18 06:57 Urine WBC 5 - 10 /hpf (0-6) 06/10/18 06:57 Ur Epithelial Cells 6 - 8 /hpf (0-5) 06/10/18 06:57 Amorphous Sediment Small 06/10/18 06:57 Urine Bacteria Large (NEG) 06/10/18 06:57 Urine Other Uyeast 06/10/18 06:57 - Hospital Course Hospital Course: Upon Admission 47 year old female presented with right sharp flank pain radiating to the back. Patient reported pain at rest, 06/07 with associated nausea. Patient had presented to ED on 06/07/2018 with similar symptoms and was sent home on Percocet , Tamsolusin, ciprofloxacin. At that time, CT Abdomen and Pelvis on 06/07 had showed a 5.9 mm calculus in the right UPJ region. Patient returned to the ED however as symptoms did not improve. Hospital Course In the ED patient had a CT abdomen/pelvis showing stone in the right mid ureter with hydronephrosis noted. Patient's UA was positive for blood in urine and positive leukocyte esterase. Patient was given IV fluids, Rocephin 1 gm, Flomax 0.4 mg, and Morphine for pain. Urology Dr. Baker was consulted and patient was taken to the OR for a right ureter stent placement. On POD#1 of stent placement, patient symptomatically improved and no longer reported flank pain, dysuria, and hematuria. As per urology recommendations, a KUB was done that showed ureteric stent in satisfactory position with no stones along the stent. Urology recommended discharge on Ciprofloxacin and pain medications with follow up as outpatient for stent removal and lithotripsy. Upon Discharge Patient to follow up with Dr. Baker in his office within 7 days upon discharge , call his office to schedule an appointment Patient to follow upwith your primary medical doctor within 5-7 days upon discharge Patient to take medications as prescribed: - Ciprofloxacin 500mg 1 tab by mouth twice a day for three days - Lactobacillus Acidophilus Take 1 tab by mouth twice a day for 5 days - Take over the counter Tylenol for pain symptoms, do not take over 3000mg in a 24 hour period If symptoms reoccur, return to nearest emergency department Discharge planning was conducted with patient including outpatient follow up, medication reconciliation, and signs and symptoms to be aware of for return to emergency department. Patient was in understanding and able to recall instructions back to primary team. Patient was deemed to be medically optimized for discharge by consultants involved in her care as well as her primary medical team. For further details regarding hospital stay please refer to full chart. - Date & Time of H&P Date of H&P: 06/11/18 (n) Time of H&P: 12:57 Discharge Exam - Head Exam Head Exam: ATRAUMATIC, NORMAL INSPECTION, NORMOCEPHALIC - Eye Exam Eye Exam: EOMI, Normal appearance, PERRL Pupil Exam: NORMAL ACCOMODATION, PERRL - ENT Exam ENT Exam: Mucous Membranes Moist - Neck Exam Neck exam: Full Rom, Normal Inspection - Respiratory Exam Respiratory Exam: Clear to PA & Lateral, NORMAL BREATHING PATTERN, UNREMARKABLE - Cardiovascular Exam Cardiovascular Exam: REGULAR RHYTHM, +S1, +S2 - GI/Abdominal Exam GI & Abdominal Exam: Normal Bowel Sounds, Unremarkable Additional comments: (-)CVA tenderness, no suprapubic tenderness - Rectal Exam Rectal Exam: Deferred - Extremities Exam Extremities exam: normal capillary refill, normal inspection, pedal pulses present - Back Exam Back exam: NORMAL INSPECTION. absent: CVA tenderness (L), CVA tenderness (R), rash noted, tenderness - Neurological Exam Neurological exam: Alert, CN II-XII Intact, Normal Gait, Oriented x3, Reflexes Normal - Psychiatric Exam Psychiatric exam: Normal Affect, Normal Mood - Skin Skin Exam: Dry, Intact, Normal Color, Warm Discharge Plan - Discharge Medications Prescriptions: Ciprofloxacin HCl [Cipro] 500 mg PO BID 3 Days #6 tablet Lactobacillus Acidophilus [Acidophilus Lactobacilli] 1 each PO BID 5 Days #10 capsule - Follow Up Plan Condition: STABLE Disposition: HOME/ ROUTINE Instructions: Renal Colic (DC), Ureteral Stent (DC), Renal Colic (DC), Renal Colic (GEN) Additional Instructions: Follow up with Dr. Baker in his office within 7 days upon discharge, call his office to schedule an appointment Follow up with your primary medical doctor within 5-7 days upon discharge Take medications as prescribed to you, new medications include - Ciprofloxacin 500mg 1 tab by mouth twice a day for three days - Lactobacillus Acidophilus Take 1 tab by mouth twice a day for 5 days - Take over the counter Tylenol for pain symptoms, do not take over 3000mg in a 24 hour period If symptoms reoccur, return to nearest emergency department Referrals: Cleve Blackman MD [Primary Care Provider] - Lucia Baker MD [Staff Provider] - <Jadyn Mojica - Last Filed: 06/12/18 17:29> Provider - Provider Date of Admission: 06/10/18 01:15 Attending physician: Jadyn Mojica DO Primary care physician: Cleve Blackman MD Hospital Course - Lab Results Lab Results: Micro Results 06/10/18 06:57 Urine Urine Culture - Final No Growth (<1,000 CFU/ML) Most Recent Lab Values WBC 6.6 10^3/ul (4.5-11.0) D 06/11/18 06:45 RBC 3.59 10^6/uL (3.5-6.1) 06/11/18 06:45 Hgb 10.7 g/dL (12.0-16.0) L 06/11/18 06:45 Hct 31.8 % (36.0-48.0) L 06/11/18 06:45 MCV 88.6 fl (80.0-105.0) 06/11/18 06:45 MCH 29.8 pg (25.0-35.0) 06/11/18 06:45 MCHC 33.6 g/dl (31.0-37.0) 06/11/18 06:45 RDW 13.1 % (11.5-14.5) 06/11/18 06:45 Plt Count 202 10^3/uL (120.0-450.0) 06/11/18 06:45 MPV 11.7 fl (7.0-11.0) H 06/11/18 06:45 Gran % 60.6 % (50.0-68.0) 06/11/18 06:45 Lymph % (Auto) 28.3 % (22.0-35.0) 06/11/18 06:45 [place] % (Auto) 7.5 % (1.0-6.0) H 06/11/18 06:45 Eos % (Auto) 3.3 % (1.5-5.0) 06/11/18 06:45 Baso % (Auto) 0.3 % (0.0-3.0) 06/11/18 06:45 Gran # 3.98 (1.4-6.5) 06/11/18 06:45 Lymph # (Auto) 1.9 (1.2-3.4) 06/11/18 06:45 [place] # (Auto) 0.5 (0.1-0.6) 06/11/18 06:45 Eos # (Auto) 0.2 (0.0-0.7) 06/11/18 06:45 Baso # (Auto) 0.02 K/mm3 (0.0-2.0) 06/11/18 06:45 Sodium 142 mmol/L (132-148) 06/11/18 06:45 Potassium 3.7 mmol/L (3.6-5.0) 06/11/18 06:45 Chloride 107 mmol/L (98-107) 06/11/18 06:45 Carbon Dioxide 28 mmol/L (21-33) 06/11/18 06:45 Anion Gap 11 (10-20) 06/11/18 06:45 BUN 9 mg/dL (7-21) 06/11/18 06:45 Creatinine 0.7 mg/dl (0.7-1.2) 06/11/18 06:45 Est GFR ( Amer) > 60 06/11/18 06:45 Est GFR (Non-Af Amer) > 60 06/11/18 06:45 Random Glucose 94 mg/dL (70-110) 06/11/18 06:45 Calcium 8.7 mg/dL (8.4-10.5) 06/11/18 06:45 Phosphorus 4.1 mg/dL (2.5-4.5) 06/10/18 06:30 Magnesium 2.0 mg/dL (1.7-2.2) 06/10/18 06:30 Total Bilirubin 0.4 mg/dL (0.2-1.3) 06/11/18 06:45 AST 20 U/L (14-36) 06/11/18 06:45 ALT 27 U/L (7-56) 06/11/18 06:45 Alkaline Phosphatase 69 U/L (38-126) 06/11/18 06:45 Total Protein 6.1 g/dL (5.8-8.3) 06/11/18 06:45 Albumin 3.4 g/dL (3.0-4.8) 06/11/18 06:45 Globulin 2.7 gm/dL 06/11/18 06:45 Albumin/Globulin Ratio 1.3 (1.1-1.8) 06/11/18 06:45 Urine Color Dark yellow (YELLOW) 06/10/18 06:57 Urine Appearance Sl cloudy (CLEAR) 06/10/18 06:57 Urine pH 6.0 (4.7-8.0) 06/10/18 06:57 Ur Specific [place] >= 1.030 (1.005-1.035) 06/10/18 06:57 Urine Protein 30 mg/dL (<30 mg/dL) H 06/10/18 06:57 Urine Glucose (UA) Negative mg/dL (NEGATIVE) 06/10/18 06:57 Urine Ketones 15 mg/dL (NEGATIVE) H 06/10/18 06:57 Urine Blood Large (NEGATIVE) H 06/10/18 06:57 Urine Nitrate Negative (NEGATIVE) 06/10/18 06:57 Urine Bilirubin Small (NEGATIVE) H 06/10/18 06:57 Urine Urobilinogen 0.2 E.U./dL (<1 E.U./dL) 06/10/18 06:57 Ur Leukocyte Esterase Trace Todd/uL (NEGATIVE) H 06/10/18 06:57 Urine RBC 25 - 30 /hpf (0-2) 06/10/18 06:57 Urine WBC 5 - 10 /hpf (0-6) 06/10/18 06:57 Ur Epithelial Cells 6 - 8 /hpf (0-5) 06/10/18 06:57 Amorphous Sediment Small 06/10/18 06:57 Urine Bacteria Large (NEG) 06/10/18 06:57 Urine Other Uyeast 06/10/18 06:57 Attending/Attestation - Attestation I have personally seen and examined this patient.: Yes I have fully participated in the care of the patient.: Yes I have reviewed all pertinent clinical information, including history, physical exam and plan: Yes Notes (Text): Patient seen and examined by me with resident at 11:45AM 06/11/18. Case including discharge plan discussed with resident. Agree with above with following additions/corrections. Patient is a 47-year-old female with no significant past medical history presented to the emergency room with right flank pain. Please see H&P for full details. Patient was admitted with hydronephrosis and nephrolithiasis secondary to a [address] abdomen and pelvis per radiologist showed migration of previously identified right UPJ calculus to the right mid ureter, calculus measure 6 x 5.2 mm. Urology was consulted. Urine was strained. Patient was continued on Flomax. Patient was placed on IV fluids. Patient was started on Rocephin. Patient had cystoscopy with stent placement with urology. Patient's symptoms resolved. KUB was done following stent placement which per radiologist showed right-sided ureteral stent in satisfactory position, no stones seen alongside the stent, no active disease. Urine culture was negative. Patient was cleared for discharge by urology. She was discharged home. On day of discharge, patient stated she was feeling much better. CVA tenderness resolved. Dysuria is soft. No abdominal pain. No nausea or vomiting. No chest pain or shortness of breath. No fevers or chills. No headaches or dizziness. Physical exam: Gen: Awake and alert sitting up in bed in no acute distress HEENT: Normocephalic, atraumatic. Extraocular muscles intact, pupils equal reactive. No scleral icterus. Oropharynx is pink and moist. No pharyngeal erythema or exudate appreciated. Neck is supple. Cardiovascular: Normal rhythm. Normal S1, S2. No murmurs, rubs, or gallops appreciated Pulmonary: Normal respiratory effort. No rhonchi, rales or wheezing appreciated. Gastrointestinal: Soft, nontender, nondistended, positive bowel sounds all 4 quadrants, no guarding. Musculoskeletal: Normal range of motion all extremities, no calf tenderness. No CVA tenderness. Central nervous system: AAO x 3. Dermatologic: Skin warm and dry Please see chart for full details. Follow up instructions. Patient to follow up with PMD within 5-7 days. Follow up with Dr. Baker in his office within 7 days upon discharge, call his office to schedule an appointment. Take medications as prescribed. All instructions explained to patient in detail. Patient both understands and agrees to all instructions. Time spent in discharging the patient including chart review, medication reconciliation, discussion with the patient, certified medical transcriptionist, consultants, and nursing staff was approximately 35 minutes.
--- NOTE | 2018-06-28 07:49 | OP ---
Copied To: Arsenio Baker MD Attending MD: Arsenio Baker MD PROCEDURE DATE: 06/10/2018 UROLOGY OPERATIVE NOTE See the history and physical and the consultation. PREOPERATIVE DIAGNOSES: Urolithiasis, severe renal colic, hydronephrosis, large right ureteral stone. POSTOPERATIVE DIAGNOSES: Urolithiasis, severe renal colic, hydronephrosis, large right ureteral stone with an obstructing stone. PROCEDURE: Exam under anesthesia, cystoscopy, right retrograde pyelogram, insertion of right double-J stent. COMPLICATIONS: There were no complications. ESTIMATED BLOOD LOSS: Less than 10 mL. SURGEON: Arsenio Baker MD Patient has a double-J stent in good location at the termination of the procedure. The stone is high up, it is relatively high up. See the films that are submitted for the radiologist to read as well. INDICATIONS: See history and physical for further details. Basically in brief, a very pleasant lady presented with severe renal colic. See the history, see the consult for further details. Then she presented, was then discharged home. She then represented. After discussing options, when she represented, she then was feeling better. We had discussed with the ER doctor various options. You can see the consultation notes for further details. But at this point, when she is having pain again back and forth, we discussed the options with the patient given the fact that it is a large stone, we are bringing the patient to the OR for an immediate cysto stent insertion. See the consultation. I met the patient this morning and now we are planning for a stenting. I explained to the patient the risks, benefits, and alternatives. I discussed the risk of treatment. I discussed the risk of non treatment. I also discussed our plan that where i have left stone, has migrated more distally that it is very proximal. Our goal is to just put a stent in, drain the kidney. Most likely, we would not be manipulating the stone. Distally here there is no waves or nerves available at this moment. There is a basket of stone of this size and at that location, it is not the general advice recommendation. The risk of ureteral injury, risk of rupture, tears etc is not worth it and the pain that she is experiencing from an obstructive kidney, we better served by placing a stent in and treating at a later time. After discussing all those options, the patient is here now for the above listed procedure. PROCEDURE: After obtaining informed consent, the patient was placed on the table. Routine monitors were placed. Timeout was called to confirm the patient positioning. We introduced cystoscope via the urethra, ureteral orifice identified. Retrograde pyelogram was performed. See the films with the Radiologist. Stones identified and now . A wire was passed up to the kidney with the little manipulation. Once we did this, we put a double-J stent in. The stent was in good location. Bladder was emptied, cystoscope removed. Patient tolerated the procedure well without complications. Exam under anesthesia revealed normal external genitalia, no pelvic or rectal mass. The patient tolerated the procedure without complications. ADDENDUM: We will discuss options, assuming the patient is feeling better. See the immediate postop note as well. Assuming that patient is feeling better, our plan will be for an outpatient followup. We will discuss shock wave lithotripsy, ureteroscopy, and laser lithotripsy. Arsenio Baker MD
--- NOTE | 2018-06-28 08:11 | CON ---
Copied To: Arsenio Baker MD Attending MD: Arsenio Baker MD DATE: 06/27/2018 UROLOGY CONSULTATION NOTE Please make a note, this is a repeat of a dictation. See the original dictation on 06/10/2018 regarding this patient. REASON FOR CONSULTATION: Severe renal colic. HISTORY OF PRESENT ILLNESS: Last evening on 06/10/2018 at about 7 a.m. I am currently in the hospital seeing another patient. On the computer screen, I saw the patient's name. Last night at about 12:40 a.m., I spoke with the ER doctor, Dr. Espana about this patient. She had presented with a 6 mm stone. At the time that we spoke, she was feeling better and the plan was to be for discharge home. This morning on the computer screen, I am noticing that patient's name. So I am seeing the patient. See below because we had a long discussion about that. Meanwhile the patient was admitted with severe pain. PAST MEDICAL AND SURGICAL HISTORY: As listed on the chart. Essentially otherwise negative, healthy 47-year-old lady. SOCIAL HISTORY: She is originally from [place] to be with the family. REVIEW OF SYSTEMS: As listed above, otherwise noncontributory. No weight loss, chest pain, or shortness of breath. She is here with her daughter who is actually a scribe in the [employer] system. Patient's daughter also provides a little bit of translation, although patient speaks Malay fairly well. See below plan. PHYSICAL EXAMINATION: GENERAL: Well nourished female, she is currently resting comfortably. VITAL SIGNS: Noted. LUNGS: Clear. HEART: Normal S1 and S2. ABDOMEN: Soft, nontender. No flank mass appreciated. PELVIC: Refer to system, but I will mention now though because we did she has no pelvic or rectal masses. LABORATORY DATA: See chart, CT scan noted. There are 2 CT scans. DIAGNOSES: Urolithiasis, hematuria, hydronephrosis, severe renal colic. ASSESSMENT AND PLAN: In summary, a very pleasant lady who has the following. She has hydronephrosis. She has a fairly large about a 7 mm stone in her proximal to mid ureter with no real migration since her initial presentation. The plan is as follows at this point. So, for clarity in summary, this is a very pleasant lady with a stone. Initially, she was seen in the emergency room and being treated immediately, I discharged home and feeling better with instructions to come to the office as a outpatient followup. She then re-presented to the emergency room on 06/09 in the late evening hours. On 06/10/2018 at about 12:45 a.m., I spoke with Dr. Espana, the ER physician about the patient and he reported that she was then represented with pain and was feeling better at that point, I invited her to come to our office in the morning as a first patient for 8 o'clock appointment. This morning I am in the hospital with another patient with the scheduled procedure, and on reviewing and writing orders in the computer, I see the same patient's name. I cannot see the patient now, evaluated just for the purpose of this consultation. And after seeing her and describing options with the patient, I am going to bring the patient to the OR as immediately as the OR is available for a stent insertion. This is a fairly large stone and she is having intermittent pain. (I also had a discussion with overnight on the transformation of care), specifically the patient after our discussion at 12:40 a.m. that a plan was to discharge home, apparently the patient has recurrent pain. Patient was then admitted to a medical service and actually a consultation was placed with Dr. Lucia Baker. I have discussed it at length with the various doctors, involved in the care. I have explained this all to the patient also in great detail. Explaining that our plan will be to take care of her. I explained this via her daughter that the plan will for as immediately as possible to take her to the operating room, place a stent. I explained also various options for treatment. I discussed the possibility for shock wave lithotripsy. I discussed so and in this setting the first thing that should be done is draining the kidney. Sometimes especially when the stone has been in for a while, it could be impacted and as . Various other reasons for the patient does not seem to be a good candidate to get out to and I think that she will be served better by placement of a stent. Further plans to follow, I explained to the patient that the next step would be to place a stent and this should make her feel better. Given the stone and the fact that she has intermittent pain, and at this minute, she is not having pain, so I discussed with her the possibility for observation, but my recommendation would be to place a stent. I explained to the patient that she has proximal migration and distal migration of the stone, we will even try to ureteroscope it. But most likely we would recommend a stent and then give some time, dilate the ureter and then comeback with ureteroscope and laser lithotripsy. So, after discussing all those options, plan as follows: 1. Analgesics. 2. Fluid. 3. Bring her to the OR immediately as possible and then further plans will follow. ADDENDUM: operative report, we were able to pass a stent successfully later in the day on 06/10/2018. Patient tolerated the procedure well. The stone is still very proximal and then we are going to make further plans to follow. This is a repeat of a dictation. Further plans to follow. Arsenio Baker MD
--- NOTE | 2018-06-28 08:13 | PN ---
Copied To: Arsenio Baker MD Attending MD: Arsenio Baker MD DATE: 06/10/2018 IMMEDIATE POSTOP NOTE SUBJECTIVE: See the operative report. See the consultation note. The patient is status post cystoscopy and retrograde pyelogram and insertion of a stent. Vital signs are now within normal limits. The patient has a well-placed double J stent for a stone. Currently, resting comfortably. Vital signs within normal limits. Minimal pain and discomfort. So, the diagnosis is status post cystoscopy, stent insertion for a stone disease. The urology plan will be outpatient followup, we will let the stent stay in a few days, treat with some antibiotics and then we will plan to discuss with the patient the options for shockwave lithotripsy versus uteroscopy. Many options available for the patient. We will discuss all further with the patient. Further plans will be outpatient management. Arsenio Baker MD
== END 2018-06-11 14:49 | disposition home or self-care (01) ==
LOC: ED 22:36 → ERH 06-10 01:15 → 3RNO 06-10 02:31
PROVIDERS: ADMIT Internal Medicine; ATTEND Hospitalist
DX: N13.2 Hydronephrosis with renal and ureteral calculous obstruction (principal); N23 Unspecified renal colic; Z82.49 Family history of ischemic heart disease and other diseases of the circulatory system; Z83.3 Family history of diabetes mellitus; Z84.1 Family history of disorders of kidney and ureter
CPT/HCPCS: 36415; 52332; 74018; 74176; 74420; 80053; 81001; 83735; 84100; 85025; 85027; 87086; 96365; 96366; 96375; 96376; 99285; C1725; C1758; C1769; C9113; G0378; J0696; J1885; J2270; J2405; J2704; J3010; J7030; J7040; J7120; Q9966

== ENCOUNTER 2018-06-13 14:54 | Observation (INO) | payer MEDICAID, OTHER ==
[2018-06-13 14:55] VITALS: BMI 28.3
--- NOTE | 2018-06-13 15:39 | ED PDOC ---
Arrival/HPI - General Time Seen by Provider: 06/13/18 14:59 Historian: Patient - History of Present Illness Narrative History of Present Illness (Text): 06/13/18 15:34 47 year old female, with no significant past medical history, who presents to the ED sent by Dr. Baker for right flank pain. Patient notes associated nausea and abdominal pain. Patient states she has a kidney stone with a stent recently put in. Patient denies any chest pain, sob, neck pain, fever, vomiting , diarrhea, chills, or any other complaints. Time/Duration: < week Symptom Onset: Gradual Symptom Course: Unchanged Activities at Onset: Light Context: Home Past Medical History - Provider Review Nursing Documentation Reviewed: Yes - Infectious Disease Hx of Infectious Diseases: None - Cardiac Hx Cardiac Disorders: No - Pulmonary Hx Respiratory Disorders: No - Neurological Hx Neurological Disorder: No - HEENT Hx HEENT Disorder: No - Renal Hx Renal Disorder: No - Endocrine/Metabolic Hx Endocrine Disorders: No - Hematological/Oncological Hx Blood Transfusions: No Hx Blood Transfusion Reaction: No - Integumentary Hx Dermatological Disorder: No - Musculoskeletal/Rheumatological Hx Falls: No - Gastrointestinal Hx Gastrointestinal Disorders: No - Genitourinary/Gynecological Hx Genitourinary Disorders: No - Psychiatric Hx Substance Use: No - Anesthesia Hx Anesthesia Reactions: No Hx Malignant Hyperthermia: No Family/Social History - Physician Review Nursing Documentation Reviewed: Yes Family/Social History: Unknown Family HX Smoking Status: Never Smoked Hx Alcohol Use: No Hx Substance Use: No Allergies/Home Meds Allergies/Adverse Reactions: Allergies No Known Allergies Allergy (Verified 06/09/18 22:54) Review of Systems - Physician Review All systems were reviewed & negative as marked: Yes - Review of Systems Constitutional: Normal Eyes: Normal ENT: Normal Respiratory: Normal. absent: SOB, Cough Cardiovascular: Normal. absent: Chest Pain Gastrointestinal: Abdominal Pain, Nausea. absent: Constipation, Diarrhea, Vomiting Genitourinary Female: Normal. absent: Dysuria, Frequency Musculoskeletal: Other (right flank pain). absent: Neck Pain Skin: Normal. absent: Rash Neurological: Normal. absent: Headache, Dizziness Endocrine: Normal Hemo/Lymphatic: Normal Psychiatric: Normal Physical Exam Vital Signs Temp Pulse Resp BP Pulse Ox 06/13/18 19:09 98.6 F 66 18 136/82 99 06/13/18 19:08 98.6 F 66 18 136/82 99 06/13/18 18:00 98.4 F 66 18 118/79 99 06/13/18 15:45 98.6 F 73 18 136/80 100 - Systems Exam Head: Present: Atraumatic, Normocephalic Pupils: Present: PERRL Extroacular Muscles: Present: EOMI Conjunctiva: Present: Normal Mouth: Present: Moist Mucous Membranes Neck: Present: Normal Range of Motion Respiratory/Chest: Present: Clear to Auscultation, Good Air Exchange. No: Respiratory Distress, Accessory Muscle Use Cardiovascular: Present: Regular Rate and Rhythm, Normal S1, S2. No: Murmurs Abdomen: Present: Tenderness (suprapubic tenderness). No: Distention, Peritoneal Signs Back: Present: CVA Tenderness (right CVA tenderness) Upper Extremity: Present: Normal Inspection. No: Cyanosis, Edema Lower Extremity: Present: Normal Inspection. No: Edema Neurological: Present: GCS=15, CN II-XII Intact, Speech Normal Skin: Present: Warm, Dry, Normal Color. No: Rashes Psychiatric: Present: Alert, Oriented x 3, Normal Insight, Normal Concentration Medical Decision Making ED Course and Treatment: 06/13/18 15:40 Impression: 47 year old female presents to the ED c/o right flank pain s/p stent 2/2 6mm stone. Has not passed. On cipro. Sent in by Dr. Baker URO for procedure. Plan: -- Labs -- UA -- reassess and disposition Progress Noes: Labs unremarkable pt already on abx, cipro at home. No fever or sirs vitals here. Pain well controlled. Appreciate consult w/ Dr. Baker: pt to go to OR tomorrow at 0730, pt to stay overnight in hospital appreciate consult w/ Dr. Salamanca: to obs to her service for OR - Lab Interpretations Lab Results: 06/13/18 16:51 06/13/18 16:51 Lab Results 06/13/18 16:51: Sodium 143, Potassium 3.6, Chloride 105, Carbon Dioxide 28, Anion Gap 14, BUN 7, Creatinine 0.6 L, Est GFR ( Amer) > 60, Est GFR (Non -Af Amer) > 60, Random Glucose 92, Calcium 9.4, Magnesium 2.1, Total Bilirubin 0.4, AST 23, ALT 34, Alkaline Phosphatase 80, Total Protein 7.2, Albumin 4.1, Globulin 3.1, Albumin/Globulin Ratio 1.3, Lipase 30 06/13/18 16:51: WBC 6.4, RBC 3.83, Hgb 11.4 L, Hct 33.3 L, MCV 86.9, MCH 29.8, MCHC 34.2, RDW 12.8, Plt Count 232, MPV 11.5 H, Gran % 63.9, Lymph % (Auto) 26.9 , Gove % (Auto) 6.7 H, Eos % (Auto) 2.2, Baso % (Auto) 0.3, Gran # 4.09, Lymph # (Auto) 1.7, Gove # (Auto) 0.4, Eos # (Auto) 0.1, Baso # (Auto) 0.02 06/13/18 16:45: Blood Type A POSITIVE, Antibody Screen Negative, BBK History Checked Patient has bt 06/13/18 16:45: Urine Color Yellow, Urine Appearance Turbid, Urine pH 6.5, Ur Specific [place] >= 1.030, Urine Protein 100 H, Urine Glucose (UA) Negative, Urine Ketones 15 H, Urine Blood Large H, Urine Nitrate Negative, Urine Bilirubin Negative, Urine Urobilinogen 0.2, Ur Leukocyte Esterase Trace H, Urine RBC Tntc, Urine WBC 1 - 3 - Medication Orders Current Medication Orders: Acetaminophen (Tylenol 325mg Tab) 650 mg PO Q6H PRN PRN Reason: Pain, moderate (4-7) Docusate Sodium (Colace) 100 mg PO DAILY [facility] Ceftriaxone Sodium (Rocephin 1 Gram Ivpb) 1 gm in 100 mls @ 100 mls/hr IVPB DAILY [facility] PRN Reason: Protocol Sodium Chloride (Sodium Chloride 0.9%) 1,000 mls @ 100 mls/hr IV .Q10H [facility] Last Admin: 06/13/18 19:30 Dose: 100 mls/hr eMAR Start Stop Document 06/13/18 19:30 (Rec: 06/13/18 19:31 [email or web address]) Intravenous Solution Start Date 06/13/18 Start Time 19:31 Morphine Sulfate (Morphine) 2 mg IVP Q4H PRN PRN Reason: Pain, severe (8-10) Last Admin: 06/13/18 19:30 Dose: 2 mg MAR Pain Assessment Document 06/13/18 19:30 (Rec: 06/13/18 19:30 [place] [id number]) Pain Reassessment Is this a pain reassessment? Yes Sleep Is patient sleeping during reassessment? No Presence of Pain Presence of Pain Yes Pain Scale Used Pain Scale Used Numeric IVP Administration Document 06/13/18 19:30 (Rec: 06/13/18 19:30 [place] [id number]) Charges for Administration # of IVP Administrations 1 Ondansetron HCl (Zofran Inj) 4 mg IVP Q4H PRN PRN Reason: Nausea/Vomiting Last Admin: 06/13/18 19:29 Dose: 4 mg IVP Administration Document 06/13/18 19:29 (Rec: 06/13/18 19:29 [place] [id number]) Charges for Administration # of IVP Administrations 1 Discontinued Medications Acetaminophen (Tylenol 325mg Tab) 650 mg PO STAT STA Stop: 06/13/18 17:42 Last Admin: 06/13/18 18:03 Dose: 650 mg MAR Pain/Vitals Document 06/13/18 18:03 (Rec: 06/13/18 18:03 [place] [id number]) Pain Reassessment Is This A Pain ReAssessment? No Sleep Is patient sleeping during reassessment? No Presence of Pain Presence of Pain Yes Pain Scale Used Pain Scale Used Numeric - Scribe Statement The provider has reviewed the documentation as recorded by the Sweta Veronica All medical record entries made by the Sweta were at my direction and personally dictated by me. I have reviewed the chart and agree that the record accurately reflects my personal performance of the history, physical exam, medical decision making, and the department course for this patient. I have also personally directed, reviewed, and agree with the discharge instructions and disposition. Disposition/Present on Arrival - Present on Arrival Any Indicators Present on Arrival: No History of DVT/PE: No History of Uncontrolled Diabetes: No Urinary Catheter: No History Surgical Site Infection Following: None - Disposition Have Diagnosis and Disposition been Completed?: Yes Diagnosis: Kidney stone Disposition: HOSPITALIZED Disposition Time: 18:00 Condition: GOOD
[2018-06-13 16:56] LABS: BASO # 0.02 K/mm3 (0.0-2.0); BASO % 0.3 % (0.0-3.0); EOS # 0.1 (0.0-0.7); EOS % 2.2 % (1.5-5.0); GRAN # 4.09 (1.4-6.5); GRAN % 63.9 % (50.0-68.0); HEMOGLOBIN 11.4 g/dL (12.0-16.0); LYMPH # 1.7 (1.2-3.4); LYMPH % 26.9 % (22.0-35.0); MEAN CELL VOLUME 86.9 fl (80.0-105.0); MEAN CORPUSCULAR HEMOGLOBIN 29.8 pg (25.0-35.0); MEAN CORPUSCULAR HGB CONC 34.2 g/dl (31.0-37.0); MEAN PLATELET VOLUME 11.5 fl (7.0-11.0); MONO # 0.4 (0.1-0.6); MONO % 6.7 % (1.0-6.0); RBC 3.83 10^6/uL (3.5-6.1); RED CELL DISTRIBUTION WIDTH 12.8 % (11.5-14.5); WHITE BLOOD COUNT 6.4 10^3/ul (4.5-11.0)
[2018-06-13 16:57] LABS: PH,URINE 6.5 (4.7-8.0); URINE BILIRUBIN NEGATIVE (NEGATIVE); URINE BLOOD LARGE (NEGATIVE); URINE GLUCOSE (UA) NEGATIVE (NEGATIVE); URINE LEUKOCYTE ESTERASE TRACE Leu/uL (NEGATIVE); URINE PROTEIN 100 mg/dL (<30 mg/dL); URINE UROBILINOGEN 0.2 E.U./dL (<1 E.U./dL)
[2018-06-13 17:12] LABS: URINE APPEARANCE TURBID (CLEAR); URINE COLOR YELLOW (YELLOW)
[2018-06-13 17:18] LABS: URINE RBC TNTC /hpf (0-2)
[2018-06-13 17:22] LABS: ALB/GLOB RATIO 1.3 (1.1-1.8); ALBUMIN 4.1 g/dL (3.0-4.8); ALT/SGPT 34 U/L (7-56); AST/SGOT 23 U/L (14-36); BLOOD UREA NITROGEN 7 mg/dL (7-21); CALCIUM 9.4 mg/dL (8.4-10.5); GFR NON-AFRICAN AMERICAN > 60; LIPASE 30 U/L (23-300)
[2018-06-13] MEDS: Morphine 2 mg/ml ISec IVP PRN (19:30)
[2018-06-13] MEDS: Sodium Chloride 0.9% 1,000 ML IV SCH (19:30)
--- NOTE | 2018-06-13 21:30 | CP.PCM.HP ---
<Mahin Bucio - Last Filed: 06/13/18 21:34> History of Present Illness - History of Present Illness History of Present Illness: Papo Bucio PGY2 - History and Physical for Hospitalist Service CC: Right flank pain HPI: 47 year old female with past medical history significant for nephrolithiasis s/p right urethral stent placement who presents to [facility] for intractable right flank pain. Patient was previously discharged from [facility] on 06/11 after being evaluated by urology and having right urethral stent placement. She was discharged home and instructed to follow up with urology. Patient reports that upon discharge she continued to have right sided flank pain. She indicated that she was experiencing sharp pain was 8-9/10 starting at her right flank and wrapping around to her right lower quadrant. She indicates she has tried to take ibuprofen for the pain with only minimal relief. She reports normal urine output and able to tolerate solids and liquids. She denies fevers, chills, chest pain, shortness of breath, pain with urination, trouble starting or stopping her stream. She does report tea colored urine at times since discharge. She denies anneliese blood, passage of clots, or stones. 12 point ROS is benign other than mentioned in HPI. PMH: Nephrolithiasis PSH: Denies SocHx: Denies Tobacco, ETOH, IVDA - Currently lives in [place] with family FMH: HTN, DM, ESRD on HD ALL: NKDA MEDS: MAR reviewed PMD: Dr. Blackman Urologist: Dr. Juvencio Baker Present on Admission - Present on Admission Any Indicators Present on Admission: No Review of Systems - Review of Systems All systems: reviewed and no additional remarkable complaints except (as mentioned in HPI) Past Patient History - Infectious Disease Hx of Infectious Diseases: None - Past Social History Smoking Status: Never Smoked Alcohol: None Drugs: Denies - CARDIAC Hx Cardiac Disorders: No - PULMONARY Hx Respiratory Disorders: No - NEUROLOGICAL Hx Neurological Disorder: No - HEENT Hx HEENT Problems: No - RENAL Hx Chronic Kidney Disease: No - ENDOCRINE/METABOLIC Hx Endocrine Disorders: No - HEMATOLOGICAL/ONCOLOGICAL Hx Blood Transfusions: No Hx Blood Transfusion Reaction: No - INTEGUMENTARY Hx Dermatological Problems: No - MUSCULOSKELETAL/RHEUMATOLOGICAL Hx Falls: No - GASTROINTESTINAL Hx Gastrointestinal Disorders: No - GENITOURINARY/GYNECOLOGICAL Hx Genitourinary Disorders: No - PSYCHIATRIC Hx Substance Use: No - SURGICAL HISTORY Hx Surgeries: No - ANESTHESIA Hx Anesthesia Reactions: No Hx Malignant Hyperthermia: No Meds Allergies/Adverse Reactions: Allergies Allergy/AdvReac Type Severity Reaction Status Date / Time No Known Allergies Allergy Verified 06/09/18 22:54 Physical Exam - Constitutional Appears: No Acute Distress - Head Exam Head Exam: ATRAUMATIC, NORMAL INSPECTION, NORMOCEPHALIC - Eye Exam Eye Exam: EOMI, PERRL - ENT Exam ENT Exam: Mucous Membranes Moist - Respiratory Exam Respiratory Exam: Clear to Auscultation Bilateral, NORMAL BREATHING PATTERN. absent: Rales, Rhonchi, Wheezes - Cardiovascular Exam Cardiovascular Exam: REGULAR RHYTHM, +S1, +S2 - GI/Abdominal Exam GI & Abdominal Exam: Normal Bowel Sounds, Soft, Tenderness (right lower quadrant ). absent: Firm, Guarding, Hernia - Extremities Exam Extremities exam: Positive for: normal capillary refill, pedal pulses present - Back Exam Back exam: CVA tenderness (R) - Neurological Exam Neurological exam: Alert, CN II-XII Intact, Normal Gait, Oriented x3, Reflexes Normal - Psychiatric Exam Psychiatric exam: Normal Affect, Normal Mood - Skin Skin Exam: Dry, Intact Results - Vital Signs Recent Vital Signs: Last Vital Signs Temp 98.1 F 06/13/18 20:16 Pulse 66 06/13/18 20:16 Resp 16 06/13/18 20:16 BP 136/78 06/13/18 20:16 Pulse Ox 98 06/13/18 20:16 - Labs Result Diagrams: 06/13/18 16:51 06/13/18 16:51 Assessment & Plan - Assessment and Plan (Free Text) Assessment: 47 year old female with past medical history significant for nephrolithiasis s/ p right urethral stent placement who presents to [facility] for intractable right flank pain. Patient to be admitted for further management of pain and is scheduled to have urological procedure with Dr. Baker in AM. Plan: Nephrolithiasis s/p right urethral stent - Patient is scheduled for urethral stent removal and lithotripsy/cystoscopy with Dr. Juvencio Baker 06/14/2018 - Previous imaging showing CT Abdomen and Pelvis - 06/07: CT showed 5.9 mm calculus at R UPJ - 06/10: shows: Moderate right-sided hydronephrosis and hydroureter secondary to a 6 mm stone in the mid right ureter. - NPO after midnight except meds - IV morphine 2mg q6H pain - IV Rocephin 1 gram Daily - Zofran 4mg IV Q4H PRN nausea - Urology Consulted and following - Strain urine GI/DVT ppx - Pepcid - SCD Case and plan discussed with attending, Dr. Yunior Bucio PGY2 - Date & Time Date: 06/13/18 Time: 21:29 <Jadyn Mojica R - Last Filed: 06/15/18 13:48> Results - Vital Signs Recent Vital Signs: Last Vital Signs Temp 98.1 F 06/15/18 06:00 Pulse 74 06/15/18 06:00 Resp 20 06/15/18 06:00 BP 116/74 06/15/18 06:00 Pulse Ox 97 06/15/18 06:00 - Labs Result Diagrams: 06/14/18 05:30 06/14/18 05:30 Attending/Attestation - Attestation I have personally seen and examined this patient.: Yes I have fully participated in the care of the patient.: Yes I have reviewed all pertinent clinical information: Yes Notes (Text): Patient seen and examined by me at 6:00PM with resident 06/13/18. Case including HPI, physical exam, and assessment and plan discussed with resident. Agree with above with following additions/corrections. Patient is a 47 year old female with past medical history significant for recent nephrolithasis and hydronephrosis that presents to the emergency room with right sided CVA tenderness, hematuria, and suprapubic tenderness. Patient was recently admitted and discharged on 06/11/18 after having right urethral stent for hydronephrosis. Patient was suppose to follow up outpatient for further treatment for nephrolithasis with Dr. Mic Baker. Patient states she went home and was feeling ok. States she was having a little pain. However, pain worsened on 06/12/18. She states she went to Dr. Baker's office yesterday 06/12/16 and was in the process of being scheduled for lithotripsy. Pain worsened today so she came into the emergency room. Pain is in her right flank. Pain is a 7/10. Pain comes and goes and is sharp. However, today, pain has been constant. Patient tried Ibuprofen at home with a little relief. Patient also complains of suprapubic pain and hematuria. States she has been taking her Cipro at home. No dysuria. No chest pain or shortness of breath. No headaches or dizziness. No fevers or chills. No nausea or vomiting. 12 point review of systems reviewed by me. Please see HPI. All other systems are negative. Family History: Mom is alive and has hypertension and renal disease. Father when patient was a child, patient does not know his medical history. Physical exam: General: Awake and alert sitting up in bed in no acute distress HEENT: Normocephalic atraumatic. Pupils equal reactive. No scleral icterus. Oropharynx is pink and moist. No pharyngeal erythema or exudate appreciated. Neck is supple. Hearing grossly intact. Ears and nose externally unremarkable Cardiovascular: Normal rhythm. Normal S1, S2. No murmurs, rubs, or gallops appreciated Pulmonary: Normal respiratory effort. No rhonchi, rales or wheezing appreciated. Gastrointestinal: Soft, nondistended. Positive suprapubic tenderness. Positive bowel sounds all 4 quadrants, no guarding. Musculoskeletal: Normal range of motion all extremities, no calf tenderness, no edema appreciated. Positive right CVA tenderness. Central nervous system: AAOx3. CN2-12 grossly intact. 5/5 muscle strength all extremities. Dermatologic: Skin warm and dry Assessment and plan: Patient is a 47 year old female with past medical history significant for recent nephrolithasis and hydronephrosis that presents to the emergency room with right sided CVA tenderness, hematuria, and suprapubic tenderness. 1. Nephrolithasis with recent history of hydronephrosis. CT abdomen and pelvis on 06/09/18 per radiologist showed migration of previously identified right UPJ calculus to the right mid ureter, calculus measure 6 x 5.2 mm. Patient had right ureteral stent placed on 06/10/18. Started on Roecphin. Urology consulted, follow up recommendations. Patient for possible lithotripsy in AM. Made NPO. Placed on IV fluids. Strain urine. Placed on morphine prn for pain management 2. Suprapubic pain and right CVA tenderness. Secondary to #1. Continue with pain management. Follow up urine culture. 3. Hematuria. Secondary to #1. Monitor CBC. Case was discussed in detail with the patient and patient's at bedside regarding current diagnosis and treatment plan.
[2018-06-14] MEDS: Sodium Chloride 0.9% 1,000 ML IV SCH ×2 (05:34→23:44)
[2018-06-14 06:25] LABS: BASO # 0.02 K/mm3 (0.0-2.0); BASO % 0.3 % (0.0-3.0); EOS # 0.2 (0.0-0.7); EOS % 3.8 % (1.5-5.0); GRAN # 3.31 (1.4-6.5); GRAN % 56.8 % (50.0-68.0); LYMPH # 1.9 (1.2-3.4); LYMPH % 32.4 % (22.0-35.0); MEAN CELL VOLUME 88.3 fl (80.0-105.0); MEAN CORPUSCULAR HEMOGLOBIN 29.3 pg (25.0-35.0); MEAN CORPUSCULAR HGB CONC 33.2 g/dl (31.0-37.0); MEAN PLATELET VOLUME 11.7 fl (7.0-11.0); MONO # 0.4 (0.1-0.6); MONO % 6.7 % (1.0-6.0); RBC 3.75 10^6/uL (3.5-6.1); RED CELL DISTRIBUTION WIDTH 13.2 % (11.5-14.5); WHITE BLOOD COUNT 5.8 10^3/ul (4.5-11.0)
[2018-06-14 07:00] LABS: ALB/GLOB RATIO 1.2 (1.1-1.8); ALBUMIN 3.6 g/dL (3.0-4.8); ALT/SGPT 31 U/L (7-56); AST/SGOT 21 U/L (14-36); BLOOD UREA NITROGEN 9 mg/dL (7-21); CALCIUM 8.8 mg/dL (8.4-10.5); GFR NON-AFRICAN AMERICAN > 60
[2018-06-14] MEDS ORDERED: Potassium Chloride 20 mEq ER Tab PO ONE (07:11)
[2018-06-14] MEDS ORDERED: cefTRIAXone (Rocephin) 1 gm Inj ONE (08:58)
[2018-06-14] MEDS ORDERED: Iohexol 240 (50 ml) ONE (08:58)
[2018-06-14] MEDS ORDERED: Propofol 10 mg/ml Inj (20 ML) ONE (09:10)
[2018-06-14] MEDS ORDERED: cefTRIAXone 1 gm 1 GM/100 ML BAG IVPB SCH (10:00)
[2018-06-14] MEDS ORDERED: HYDROmorphone 0.5 mg/0.5 ml ISec IVP PRN (10:12)
[2018-06-14] MEDS ORDERED: Lactated Ringer's 1,000 ML IV SCH (10:15)
[2018-06-14] MEDS: Morphine 2 mg/ml ISec IVP PRN ×2 (11:39→21:40)
--- NOTE | 2018-06-14 13:38 | RAD ---
Date of service: 06/14/2018 PROCEDURE: Fluoroscopy up to 1 hr. HISTORY: RIGHT URETERAL STONE COMPARISON: None TECHNIQUE: Standard protocol for this study/examination. FINDINGS: Total fluoroscopic time (continuous mode) utilized during the procedure 10.1 (seconds). Total exam DLP: 2.51 (mGy). IMPRESSION: Less than 1 hr fluoroscopic assistance provided during performance of the procedure.
[2018-06-14 16:41] VITALS: O2SAT 97
--- NOTE | 2018-06-14 18:09 | CP.PCM.PN ---
<Rayn Dorantes - Last Filed: 06/14/18 18:32> Subjective - Date & Time of Evaluation Date of Evaluation: 06/14/18 Time of Evaluation: 07:30 - Subjective Subjective: Ryan Dorantes, PGY-1 Internal Medicine progress note for Dr Jadyn Mojica Patient seen and examined at bedside. No significant overnight events. No flank pain reported by the patient at that time, her pain is well controlled with meds. She denied dysurea, nausea, vomiting, urinary urgency, chest pain, palpitation, fever,chills. Patient is NPO for urology procedure. No complaints reported by the patient. Objective - Vital Signs/Intake and Output Vital Signs (last 24 hours): Temp Pulse Resp BP Pulse Ox 97.8 F 73 18 112/64 97 06/14/18 16:40 06/14/18 16:40 06/14/18 16:40 06/14/18 16:40 06/14/18 16:40 Intake and Output: 06/14/18 06/14/18 06:59 18:59 Intake Total 3480 75 Output Total 700 Balance 2780 75 - Medications Medications: Current Medications Acetaminophen (Tylenol 325mg Tab) 650 mg PO Q6H PRN PRN Reason: Pain, moderate (4-7) Docusate Sodium (Colace) 100 mg PO DAILY [facility] Last Admin: 06/14/18 09:53 Dose: Not Given Ceftriaxone Sodium (Rocephin 1 Gram Ivpb) 1 gm in 100 mls @ 100 mls/hr IVPB DAILY [facility] PRN Reason: Protocol Last Admin: 06/14/18 09:53 Dose: Not Given Sodium Chloride (Sodium Chloride 0.9%) 1,000 mls @ 100 mls/hr IV .Q10H [facility] Last Admin: 06/14/18 05:34 Dose: 100 mls/hr Morphine Sulfate (Morphine) 2 mg IVP Q4H PRN PRN Reason: Pain, severe (8-10) Last Admin: 06/14/18 11:39 Dose: 2 mg Ondansetron HCl (Zofran Inj) 4 mg IVP Q4H PRN PRN Reason: Nausea/Vomiting Last Admin: 06/13/18 19:29 Dose: 4 mg - Labs Labs: 06/14/18 05:30 06/14/18 05:30 - Constitutional Appears: Well, No Acute Distress - Head Exam Head Exam: ATRAUMATIC, NORMAL INSPECTION, NORMOCEPHALIC - Eye Exam Eye Exam: EOMI, Normal appearance, PERRL Pupil Exam: NORMAL ACCOMODATION, PERRL - ENT Exam ENT Exam: Mucous Membranes Moist, Normal Exam - Neck Exam Neck Exam: Full ROM, Normal Inspection. absent: Lymphadenopathy - Respiratory Exam Respiratory Exam: Clear to Ausculation Bilateral, NORMAL BREATHING PATTERN - Cardiovascular Exam Cardiovascular Exam: REGULAR RHYTHM, +S1, +S2. absent: Murmur - GI/Abdominal Exam GI & Abdominal Exam: Soft, Normal Bowel Sounds. absent: Tenderness Additional comments: positive CVA tenderness on the right - Rectal Exam Rectal Exam: Deferred - Extremities Exam Extremities Exam: Full ROM, Normal Capillary Refill, Normal Inspection. absent : Joint Swelling, Pedal Edema - Back Exam Back Exam: NORMAL INSPECTION - Neurological Exam Neurological Exam: Alert, Awake, CN II-XII Intact, Normal Gait, Oriented x3 - Psychiatric Exam Psychiatric exam: Normal Affect, Normal Mood - Skin Skin Exam: Dry, Intact, Normal Color, Warm Assessment and Plan - Assessment and Plan (Free Text) Assessment: 47 y/o female with PMH significant for nephrolithiasis s/p right urethral stent placement on 06/11/18 who presents to [facility] ED for right flank pain shortly after hospital discharge. Patient was admitted for pain management and is scheduled for urological procedure with Dr. Baker in am. Plan: Nephrolithiasis s/p right urethral stent - Patient returned to hospital after having severe right flank pain. was scheduled for outpatient appointment with Dr Woo - Urologist notified of patient re admission to the medical floor - Patient is scheduled for urethral stent removal and lithotripsy/cystoscopy with Dr. Juvencio Baker this am - CT Abdomen and Pelvis on 06/10: Moderate right-sided hydronephrosis and hydroureter secondary to a 6 mm stone in the mid right ureter - Patient is NPO - IVF: NS @100 ml/hr - Rocephin 1 mg daily - IV morphine 2mg q6H pain - Zofran 4mg IV Q4H PRN nausea - GI ppx Pepcid - DVT ppx SCD Case reviewed and discussed with Jaqui GuamanO PGY-1 <Jadyn Mojica R - Last Filed: 06/15/18 13:59> Objective - Vital Signs/Intake and Output Vital Signs (last 24 hours): Temp Pulse Resp BP Pulse Ox 98.1 F 74 20 116/74 97 06/15/18 06:00 06/15/18 06:00 06/15/18 06:00 06/15/18 06:00 06/15/18 06:00 Intake and Output: 06/15/18 06/15/18 06:59 18:59 Intake Total 2100 Output Total 450 Balance 1650 - Labs Labs: 06/14/18 05:30 06/14/18 05:30 Attending/Attestation - Attestation I have personally seen and examined this patient.: Yes I have fully participated in the care of the patient.: Yes I have reviewed all pertinent clinical information, including history, physical exam and plan: Yes Notes (Text): Patient seen and examined by me at 11:30AM with resident 06/14/18. Case including HPI, physical exam, and assessment and plan discussed with resident. Agree with above with following additions/corrections. Patient is s/p lithotripsy. She states she is feeling ok. States she is still having suprapubic pain and hematuria but right CVA tenderness has resolved. She denies any dysuria. No chest pain or shortness of breath. No headaches or dizziness. No fevers or chills. No nausea, vomiting, or abdominal pain. Physical exam: General: Awake and alert sitting up in bed in no acute distress HEENT: Normocephalic atraumatic. Pupils equal reactive. No scleral icterus. Oropharynx is pink and moist. No pharyngeal erythema or exudate appreciated. Neck is supple. Hearing grossly intact. Ears and nose externally unremarkable Cardiovascular: Normal rhythm. Normal S1, S2. No murmurs, rubs, or gallops appreciated Pulmonary: Normal respiratory effort. No rhonchi, rales or wheezing appreciated. Gastrointestinal: Soft, nondistended. Positive suprapubic tenderness. Positive bowel sounds all 4 quadrants, no guarding. Musculoskeletal: Normal range of motion all extremities, no calf tenderness, no edema appreciated. No CVA tenderness. Central nervous system: AAOx3. CN2-12 grossly intact. 5/5 muscle strength all extremities. Dermatologic: Skin warm and dry Assessment and plan: Patient is a 47 year old female with past medical history significant for recent nephrolithasis and hydronephrosis that presents to the emergency room with right sided CVA tenderness, hematuria, and suprapubic tenderness. 1. Nephrolithasis with recent history of hydronephrosis. CT abdomen and pelvis on 06/09/18 per radiologist showed migration of previously identified right UPJ calculus to the right mid ureter, calculus measure 6 x 5.2 mm. Patient had right ureteral stent placed on 06/10/18. Continue Roecphin. Urology following, recommendations appreciated. S/P lithotripsy today. Case discussed with Dr. Mic Baker, patient to be continued on 3 days of antibiotics, stent to come out tomorrow, and patient to continue flomax for a few days. 2. Suprapubic pain and right CVA tenderness. Secondary to #1. CVA tenderness resolved. Continue with pain management. Follow up urine culture. 3. Hematuria. Secondary to #1. h&h stable. Continue to monitor. Case was discussed in detail with the patient regarding current diagnosis and treatment plan.
[2018-06-15] MEDS: Sodium Chloride 0.9% 1,000 ML IV SCH (01:15)
[2018-06-15 06:53] VITALS: BP 116/74; PULSE 74; RESP 20; TEMP 98.1
--- NOTE | 2018-06-15 11:45 | CP.PCM.DIS ---
<AdalbertoRyan jean baptiste - Last Filed: 06/15/18 13:40> Provider - Provider Date of Admission: 06/13/18 17:38 Attending physician: Jadyn Mojica DO Primary care physician: Dr. Samayoa Consults: Urology Dr Baker Time Spent in preparation of Discharge (in minutes): 45 Hospital Course - Lab Results Lab Results: Micro Results 06/13/18 17:52 Urine,Clean Catch Urine Culture - Final No Growth (<1,000 CFU/ML) Most Recent Lab Values WBC 5.8 10^3/ul (4.5-11.0) 06/14/18 05:30 RBC 3.75 10^6/uL (3.5-6.1) 06/14/18 05:30 Hgb 11.0 g/dL (12.0-16.0) L 06/14/18 05:30 Hct 33.1 % (36.0-48.0) L 06/14/18 05:30 MCV 88.3 fl (80.0-105.0) 06/14/18 05:30 MCH 29.3 pg (25.0-35.0) 06/14/18 05:30 MCHC 33.2 g/dl (31.0-37.0) 06/14/18 05:30 RDW 13.2 % (11.5-14.5) 06/14/18 05:30 Plt Count 218 10^3/uL (120.0-450.0) 06/14/18 05:30 MPV 11.7 fl (7.0-11.0) H 06/14/18 05:30 Gran % 56.8 % (50.0-68.0) 06/14/18 05:30 Lymph % (Auto) 32.4 % (22.0-35.0) 06/14/18 05:30 Emmet % (Auto) 6.7 % (1.0-6.0) H 06/14/18 05:30 Eos % (Auto) 3.8 % (1.5-5.0) 06/14/18 05:30 Baso % (Auto) 0.3 % (0.0-3.0) 06/14/18 05:30 Gran # 3.31 (1.4-6.5) 06/14/18 05:30 Lymph # (Auto) 1.9 (1.2-3.4) 06/14/18 05:30 Emmet # (Auto) 0.4 (0.1-0.6) 06/14/18 05:30 Eos # (Auto) 0.2 (0.0-0.7) 06/14/18 05:30 Baso # (Auto) 0.02 K/mm3 (0.0-2.0) 06/14/18 05:30 Sodium 143 mmol/L (132-148) 06/14/18 05:30 Potassium 3.4 mmol/L (3.6-5.0) L 06/14/18 05:30 Chloride 106 mmol/L (98-107) 06/14/18 05:30 Carbon Dioxide 27 mmol/L (21-33) 06/14/18 05:30 Anion Gap 13 (10-20) 06/14/18 05:30 BUN 9 mg/dL (7-21) 06/14/18 05:30 Creatinine 0.7 mg/dl (0.7-1.2) 06/14/18 05:30 Est GFR ( Amer) > 60 06/14/18 05:30 Est GFR (Non-Af Amer) > 60 06/14/18 05:30 Random Glucose 92 mg/dL (70-110) 06/14/18 05:30 Calcium 8.8 mg/dL (8.4-10.5) 06/14/18 05:30 Magnesium 2.1 mg/dL (1.7-2.2) 06/13/18 16:51 Total Bilirubin 0.3 mg/dL (0.2-1.3) 06/14/18 05:30 AST 21 U/L (14-36) 06/14/18 05:30 ALT 31 U/L (7-56) 06/14/18 05:30 Alkaline Phosphatase 70 U/L (38-126) 06/14/18 05:30 Total Protein 6.5 g/dL (5.8-8.3) 06/14/18 05:30 Albumin 3.6 g/dL (3.0-4.8) 06/14/18 05:30 Globulin 2.9 gm/dL 06/14/18 05:30 Albumin/Globulin Ratio 1.2 (1.1-1.8) 06/14/18 05:30 Lipase 30 U/L (23-300) 06/13/18 16:51 Urine Color Yellow (YELLOW) 06/13/18 16:45 Urine Appearance Turbid (CLEAR) 06/13/18 16:45 Urine pH 6.5 (4.7-8.0) 06/13/18 16:45 Ur Specific [place] >= 1.030 (1.005-1.035) 06/13/18 16:45 Urine Protein 100 mg/dL (<30 mg/dL) H 06/13/18 16:45 Urine Glucose (UA) Negative mg/dL (NEGATIVE) 06/13/18 16:45 Urine Ketones 15 mg/dL (NEGATIVE) H 06/13/18 16:45 Urine Blood Large (NEGATIVE) H 06/13/18 16:45 Urine Nitrate Negative (NEGATIVE) 06/13/18 16:45 Urine Bilirubin Negative (NEGATIVE) 06/13/18 16:45 Urine Urobilinogen 0.2 E.U./dL (<1 E.U./dL) 06/13/18 16:45 Ur Leukocyte Esterase Trace Todd/uL (NEGATIVE) H 06/13/18 16:45 Urine RBC Tntc /hpf (0-2) 06/13/18 16:45 Urine WBC 1 - 3 /hpf (0-6) 06/13/18 16:45 Blood Type A POSITIVE 06/13/18 16:45 Antibody Screen Negative 06/13/18 16:45 BBK History Checked Patient has bt 06/13/18 16:45 - Hospital Course Hospital Course: Upon Admission: 47 y/o female with PMH significant for nephrolithiasis s/p right urethral stent placement on 06/11/18 who returned to hospital after having severe right flank pain shortly after hospital discharge on 06/11 . Patient was admitted for pain management urological procedure lithotripsy/cystoscopy with Dr. Baker Hospital Course; CT Abdomen and Pelvis on 06/10: Moderate right-sided hydronephrosis and hydroureter secondary to a 6 mm stone in the mid right ureter. Patient was given IV fluids, Rocephin 1 gm, Flomax 0.4 mg, and Morphine for pain. Urology Dr. Baker was consulted and patient was taken to the OR for lithotripsy/ cystoscopy, right ureter stent placement still in place. On POD#1 patient symptomatically improved and no longer reported flank pain, dysuria, and hematuria. The following day, patient passed the placent ureteric stent in urine. Urology recommended CT Abdomen and Pelvis that showed moderate right- sided hydronephrosis and hydroureter likely post-procedure. WBC normal, patient denied fever, chills or signs of infection. Urology recommended discharge on Ciprofloxacin, Flomax and pain medications with follow up as outpatient. Upon Discharge: Patient to follow up with Dr. Baker in his office within 7 days upon discharge , call his office to schedule an appointment Patient to follow upwith your primary medical doctor, Dr. Samayoa, within 5-7 days upon discharge Patient to take medications as prescribed: - Ciprofloxacin 500mg 1 tab by mouth twice a day for three days - Lactobacillus Acidophilus Take 1 tab by mouth twice a day for 5 days - Ibuprofen 400mg tree times a day for pain symptoms, take with food. - Pepcid daily at bedtime If symptoms reoccur, return to nearest emergency department Discharge planning was conducted with patient including outpatient follow up, medication reconciliation, and signs and symptoms to be aware of for return to emergency department. Patient was in understanding and able to recall instructions back to primary team. Patient was deemed to be medically optimized for discharge by consultants involved in her care as well as her primary medical team. For further details regarding hospital stay please refer to full chart. - Date & Time of H&P Date of H&P: 18/18 Time of H&P: 08:35 Discharge Exam - Head Exam Head Exam: ATRAUMATIC, NORMAL INSPECTION, NORMOCEPHALIC - Eye Exam Eye Exam: EOMI, Normal appearance, PERRL Pupil Exam: NORMAL ACCOMODATION, PERRL - ENT Exam ENT Exam: Normal Exam - Neck Exam Neck exam: Normal Inspection - Respiratory Exam Respiratory Exam: Clear to PA & Lateral, NORMAL BREATHING PATTERN - Cardiovascular Exam Cardiovascular Exam: REGULAR RHYTHM, +S1, +S2 - GI/Abdominal Exam GI & Abdominal Exam: Normal Bowel Sounds. absent: Tenderness - Rectal Exam Rectal Exam: Deferred - Extremities Exam Extremities exam: normal capillary refill - Back Exam Back exam: absent: CVA tenderness (L), CVA tenderness (R), paraspinal tenderness - Neurological Exam Neurological exam: Alert, CN II-XII Intact, Normal Gait, Oriented x3, Reflexes Normal - Psychiatric Exam Psychiatric exam: Normal Affect, Normal Mood - Skin Skin Exam: Dry, Intact, Normal Color, Warm Discharge Plan - Discharge Medications Prescriptions: Ciprofloxacin HCl [Cipro] 500 mg PO BID 3 Days #6 tablet Famotidine [Pepcid] 40 mg PO HS #10 tab Ibuprofen [Motrin Tab] 400 mg PO TID PRN #15 tab PRN Reason: Pain, Mild (1-3) Lactobacillus Acidophilus [Acidophilus Lactobacilli] 1 each PO BID 5 Days #10 capsule Tamsulosin [Flomax] 0.4 mg PO DAILY #30 cap - Follow Up Plan Condition: GOOD Disposition: HOME/ ROUTINE Instructions: Kidney Stones in Adults, Renal Colic (DC), Renal Colic (GEN) Additional Instructions: Please take antibiotics twice a day for 3 days. Please also take lactobacillus daily. Please continue flomax as well. Please also take ibuprofen 3 times a day for pain as needed. With that place take pepcid daily at bedtime. Please follow up with Dr. Baker. Please follow up with your PMD Dr. Samayoa in 3 to 5 days.Please return to the ED if symptoms reoccur. <Raven Child - Last Filed: 06/15/18 15:39> Provider - Provider Date of Admission: 06/13/18 17:38 Attending physician: Jadyn Mojica DO Hospital Course - Lab Results Lab Results: Micro Results 06/13/18 17:52 Urine,Clean Catch Urine Culture - Final No Growth (<1,000 CFU/ML) Most Recent Lab Values WBC 5.8 10^3/ul (4.5-11.0) 06/14/18 05:30 RBC 3.75 10^6/uL (3.5-6.1) 06/14/18 05:30 Hgb 11.0 g/dL (12.0-16.0) L 06/14/18 05:30 Hct 33.1 % (36.0-48.0) L 06/14/18 05:30 MCV 88.3 fl (80.0-105.0) 06/14/18 05:30 MCH 29.3 pg (25.0-35.0) 06/14/18 05:30 MCHC 33.2 g/dl (31.0-37.0) 06/14/18 05:30 RDW 13.2 % (11.5-14.5) 06/14/18 05:30 Plt Count 218 10^3/uL (120.0-450.0) 06/14/18 05:30 MPV 11.7 fl (7.0-11.0) H 06/14/18 05:30 Gran % 56.8 % (50.0-68.0) 06/14/18 05:30 Lymph % (Auto) 32.4 % (22.0-35.0) 06/14/18 05:30 Emmet % (Auto) 6.7 % (1.0-6.0) H 06/14/18 05:30 Eos % (Auto) 3.8 % (1.5-5.0) 06/14/18 05:30 Baso % (Auto) 0.3 % (0.0-3.0) 06/14/18 05:30 Gran # 3.31 (1.4-6.5) 06/14/18 05:30 Lymph # (Auto) 1.9 (1.2-3.4) 06/14/18 05:30 Emmet # (Auto) 0.4 (0.1-0.6) 06/14/18 05:30 Eos # (Auto) 0.2 (0.0-0.7) 06/14/18 05:30 Baso # (Auto) 0.02 K/mm3 (0.0-2.0) 06/14/18 05:30 Sodium 143 mmol/L (132-148) 06/14/18 05:30 Potassium 3.4 mmol/L (3.6-5.0) L 06/14/18 05:30 Chloride 106 mmol/L (98-107) 06/14/18 05:30 Carbon Dioxide 27 mmol/L (21-33) 06/14/18 05:30 Anion Gap 13 (10-20) 06/14/18 05:30 BUN 9 mg/dL (7-21) 06/14/18 05:30 Creatinine 0.7 mg/dl (0.7-1.2) 06/14/18 05:30 Est GFR ( Amer) > 60 06/14/18 05:30 Est GFR (Non-Af Amer) > 60 06/14/18 05:30 Random Glucose 92 mg/dL (70-110) 06/14/18 05:30 Calcium 8.8 mg/dL (8.4-10.5) 06/14/18 05:30 Magnesium 2.1 mg/dL (1.7-2.2) 06/13/18 16:51 Total Bilirubin 0.3 mg/dL (0.2-1.3) 06/14/18 05:30 AST 21 U/L (14-36) 06/14/18 05:30 ALT 31 U/L (7-56) 06/14/18 05:30 Alkaline Phosphatase 70 U/L (38-126) 06/14/18 05:30 Total Protein 6.5 g/dL (5.8-8.3) 06/14/18 05:30 Albumin 3.6 g/dL (3.0-4.8) 06/14/18 05:30 Globulin 2.9 gm/dL 06/14/18 05:30 Albumin/Globulin Ratio 1.2 (1.1-1.8) 06/14/18 05:30 Lipase 30 U/L (23-300) 06/13/18 16:51 Urine Color Yellow (YELLOW) 06/13/18 16:45 Urine Appearance Turbid (CLEAR) 06/13/18 16:45 Urine pH 6.5 (4.7-8.0) 06/13/18 16:45 Ur Specific [place] >= 1.030 (1.005-1.035) 06/13/18 16:45 Urine Protein 100 mg/dL (<30 mg/dL) H 06/13/18 16:45 Urine Glucose (UA) Negative mg/dL (NEGATIVE) 06/13/18 16:45 Urine Ketones 15 mg/dL (NEGATIVE) H 06/13/18 16:45 Urine Blood Large (NEGATIVE) H 06/13/18 16:45 Urine Nitrate Negative (NEGATIVE) 06/13/18 16:45 Urine Bilirubin Negative (NEGATIVE) 06/13/18 16:45 Urine Urobilinogen 0.2 E.U./dL (<1 E.U./dL) 06/13/18 16:45 Ur Leukocyte Esterase Trace Todd/uL (NEGATIVE) H 06/13/18 16:45 Urine RBC Tntc /hpf (0-2) 06/13/18 16:45 Urine WBC 1 - 3 /hpf (0-6) 06/13/18 16:45 Blood Type A POSITIVE 06/13/18 16:45 Antibody Screen Negative 06/13/18 16:45 BBK History Checked Patient has bt 06/13/18 16:45 Attending/Attestation - Attestation I have personally seen and examined this patient.: Yes I have fully participated in the care of the patient.: Yes I have reviewed all pertinent clinical information, including history, physical exam and plan: Yes Notes (Text): 06/15/18 15:36 Attending note; Patient seen and examined with the resident. Patient is a 47 year old female with past medical history significant for recent nephrolithasis and hydronephrosis that presents to the emergency room with right sided CVA tenderness, hematuria, and suprapubic tenderness. 1. Nephrolithasis; repeat CT abdomen and pelvis showed mild hydronephrosis. Currently abdominal pain is resolving. CVA tenderness is resolved. S/P lithotripsy yesterday. Case discussed with Dr. Mic Baker. Patient can be discharged home. Patient will be given by mouth ciprofloxacin, Flomax and motrin. Currently tolerating diet. Afebrile and nontoxic. Patient will be discharged home today. Patient will follow-up with PMD DR. samayoa. Case was discussed in detail with the patient regarding current diagnosis and treatment plan.
--- NOTE | 2018-06-15 18:00 | CT ---
Date of service: 06/14/2018 PROCEDURE: CT Abdomen and Pelvis with Oral contrast. HISTORY: Lower abdominal pain COMPARISON: Comparison made with prior CT scan of the abdomen pelvis 06/09/2018. TECHNIQUE: Contiguous axial images of the abdomen and pelvis pelvis without oral or intravenous contrast. Additional 2D sagittal and coronal reformats generated. This CT exam was performed using one or more of the following dose reduction techniques: Automated exposure control, adjustment of the mA and/or kV according to patient size, and/or use of iterative reconstruction technique. Contrast dose: NA Radiation dose: Total exam DLP = 885.13 mGy-cm. FINDINGS: LOWER THORAX: Unremarkable. LIVER: Unremarkable. No gross lesion or ductal dilatation. GALLBLADDER AND BILE DUCTS: Gallbladder incompletely distended likely due to nonfasting state. PANCREAS: Unremarkable. No mass. No ductal dilatation. SPLEEN: There appears to be a small splenic artery aneurysm which is partially peripherally calcified. . No splenomegaly. ADRENALS: No adrenal lesions. KIDNEYS AND URETERS: Right-sided hydronephrosis with slight prominence of the urothelium of the ureter. No definite evidence of obstructing calculus. Rule out UTI versus sequela of recent neurological procedure and given the fact that a small calculus was seen in the proximal right ureter on prior study. Clinical correlation recommended. BLADDER: Urinary bladder is incompletely distended which may account for slight thick-walled appearance. Rule out cystitis. No evidence of intraluminal urinary bladder calculi. REPRODUCTIVE: Uterus and adnexal structures unremarkable. APPENDIX: Normal appendix BOWEL: Unremarkable. No obstruction. No gross mural thickening. PERITONEUM: Unremarkable. No fluid collection. No free air. . Mild diastases of the mid anterior abdominal wall with small fat containing umbilical hernia. LYMPH NODES: Unremarkable. No enlarged lymph nodes. VASCULATURE: Unremarkable. No aortic aneurysm. BONES: Minor levoscoliosis of the lumbar spine centered at approximately the L3-L4 level OTHER FINDINGS: None. IMPRESSION: Previously noted proximal right ureteral calculus no longer visible however there is mild right side hydronephrosis with slight thickening of the the urothelium of the right renal pelvis and ureter ; rule out sequela of recent urologic procedure and/or infection. . See above discussion for additional details and findings.
--- NOTE | 2018-06-27 08:48 | PN ---
Copied To: Arsenio Baker MD Attending MD: Arsenio Baker MD DATE: 06/14/2018 IMMEDIATE POSTOP NOTE SUBJECTIVE: See the history and physical and the operative note. The patient is in the recovery room, stable condition. Vital signs within normal limits. She is status post cystoscopy, ureteroscopy, laser lithotripsy and stone extraction. . There were no complications. The blood loss was minimal. The patient is in the recovery room and stable vital signs. The plan will be discharge home. Antibiotics used. Pain medicine as needed. Analgesic, Motrin, etc. Discharge instructions were given. Further plans will follow. Arsenio Baker MD
--- NOTE | 2018-06-28 06:54 | HP ---
Copied To: Arsenio Baker MD Attending MD: Arsenio Baker MD UROLOGY ADMISSION REASON FOR ADMISSION: Further treatment of kidney stones with severe pain. HISTORY OF PRESENT ILLNESS: Ms. Fuentes is a very pleasant lady. She is 47 years old and I have been treating her, see the notes from 06/10/2018, from last week where we treated her, replaced the stent for severe pain, hydronephrosis and hematuria. Today, she is here for cystoscopy and uteroscopy and laser lithotripsy. We had discussed options. We discussed shockwave lithotripsy, particularly insurance related and the patient's willingness to go. The patient preferred to have procedure here with the uteroscopy, laser lithotripsy rather than travel to [place] to the [facility]. We have discussed options. We discussed risks, benefits, alternatives of open surgery. We discussed ureteroscopy, we discussed ESWL. We discussed percutaneous treatment. We discussed all the various options and recommendations. The guidelines, I believe, were provide the patient either ureteroscopy, laser lithotripsy, or shockwave lithotripsy. After reviewing the options and hearing all the options we are able to do it and we will do our best. See the plan listed above. is essentially negative. No history of GA. No history of CVA. SOCIAL HISTORY: She is from [place] background. She has a family . PHYSICAL EXAMINATION GENERAL: Well-nourished female, in no apparent distress. VITAL SIGNS: Within normal limits. LUNGS: Clear. HEART: Normal S1, S2. ABDOMEN: Overall soft, nontender. No flank mass appreciated.. PELVIC: but I will mentioned now there are no pelvic or rectal masses. LABORATORY DATA: See chart. CT, x-rays etc, see chart. DIAGNOSES: Urolithiasis, hematuria, hydronephrosis, flank pain. We discussed the options at length with the patient. Risks, benefits, treatment alternatives discussed at length. The plan is as follows, cystoscopy, ureteroscopy, laser lithotripsy. I have made arrangements to have the laser nurse available for the OR. Today's plans are as follows antibiotic prophylaxis, cystoscopy, ureteroscopy, laser lithotripsy. And then, further plans will follow. Arsenio Baker MD
--- NOTE | 2018-06-28 07:49 | OP ---
Copied To: Arsenio Baker MD Attending MD: Arsenio Baker MD PROCEDURE DATE: 06/14/2018 PREOPERATIVE DIAGNOSES: Urolithiasis, hematuria, hydronephrosis, and severe renal colic. POSTOPERATIVE DIAGNOSES: Urolithiasis, hematuria, hydronephrosis, and severe renal colic on the right side. PROCEDURES: Cystoscopy, removal of a right double-J stent, right ureteroscopy, laser lithotripsy with Holmium YAG laser and placement of a right ureteral stent with dangle. COMPLICATIONS: There were no complications. ESTIMATED BLOOD LOSS: Less than 10 mL. At the termination of the procedure, the patient has barely visible stones, stones fragments, and she has a well placed double J stent with dangles. INDICATIONS FOR PROCEDURE: See history and physical for further details. A very pleasant lady here for the above listed procedure. We discussed this at great length. We discussed ureteroscopy and we discussed laser lithotripsy as well we discussed percutaneous, we discussed open surgery and discussed all the various options, but the patient today is here now for the above listed procedure. We want to mention the procedure went very well, we were able to break the stone up in a very good fashion. The urology findings were other than the stones no other major abnormalities were found. The patient with minimal other complaints. DESCRIPTION OF PROCEDURE: After the informed consent, the patient was placed on the table. Routine monitor was placed. Time-out was called to confirm the patient's positioning. We introduced the cystoscope via urethra. We identified the previous site of stents. We removed and just passed a wire up to the kidney without difficulty. Once we did this, we now went adjacent to the wire with the ureteroscope and we used the short rigid ureteroscope and we proceeded up to ureter. Then, we identified the stone. Once we identified the stone, we then provided a laser fiber and also used a 375 micron fiber. We provided a holmium YAG energy to the stone. The entire procedure was done with a fluoroscopic imaging and with a camera, so that the public health training assistant can stay and I could stay. With good visualization, we break the stone with several pieces. We did break very nicely. We chased up the ureter a little bit, but we had good control. At this point, we once we fragmented it very well. Once we fragmented well little basketing. The entire procedure was done like as mentioned with the camera. Specimen was sent down. Overall, the patient tolerated the procedure well without complications. At the termination of the procedure, we placed a double-J stenting with dangle. We confirmed of them fluoroscopically. We advanced easily. The patient tolerated the procedure without complications. I just make an addendum to this note. ADDENDUM These are immediate postop note, but ultimately will be that the patient will remove the stent or come to the office and remove it on 1 or 2 days. Overall, everything went well. Arsenio Baker MD
== END 2018-06-15 13:05 | disposition home or self-care (01) ==
LOC: ED 14:54 → ERH 17:38 → 3RNO 20:16
PROVIDERS: ADMIT Hospitalist; ATTEND Hospitalist
DX: N13.2 Hydronephrosis with renal and ureteral calculous obstruction (principal); Z82.49 Family history of ischemic heart disease and other diseases of the circulatory system; Z84.1 Family history of disorders of kidney and ureter
CPT/HCPCS: 36415; 52356; 74176; 74420; 80053; 81001; 83690; 83735; 85025; 86850; 86900; 87086; 88300; 96372; 96374; 96375; 99283; C1758; C1769; C2617; G0378; J0696; J1885; J2270; J2405; J2704; J2765; J3010; J7030; J7120; Q9966